=== PATIENT | male | born 1940 | race Caucasian/White ===

== ENCOUNTER → 2017-05-18 08:58 | Outpatient (CLI) | payer MEDICARE, OTHER, SELFPAY ==
[2017-05-18 10:47] LABS: Alanine Aminotransferase 40 U/L (12-78); Albumin Level 4.3 gm/dL (3.4-5.0); Albumin/Globulin Ratio 1.2 (1.1-1.8); Alkaline Phosphatase 90 U/L (46-116); Anion Gap 14.3 mEq/L (5-15); Aspartate Amino Transferase 16 U/L (15-37); Blood Urea Nitrogen 22 mg/dL (7-18); Calcium 9.2 mg/dL (8.5-10.1); Carbon Dioxide 27 mmol/L (21.0-32.0); Chloride 104 mmol/L (98-107); Cholesterol 155 mg/dL (140-200); Creatinine,Serum 1.25 mg/dL (0.70-1.30); Estimated Glomerular Filt Rate 56 ml/min (>60); GFR (African American) 68 ML/MIN (>60); Globulin 3.7 gm/dl (1.3-3.2); Glucose 106 mg/dL (74-106); HDL Cholesterol 51 mg/dL (27-67); LDL Cholesterol 73 mg/dL (0-130); Potassium 4.3 mmoL/L (3.5-5.1); Sodium 141 mmol/L (136-145); Triglycerides 155 mg/dL (30-200); VLDL Cholesterol 31 mg/dL (0-40)
== END ==
PROVIDERS: PCP Internal Medicine; Visit Provider Internal Medicine
DX: I10 Essential (primary) hypertension (principal); E78.5 Hyperlipidemia, unspecified; R73.02 Impaired glucose tolerance (oral); R39.12 Poor urinary stream
CPT/HCPCS: 36415; 80053; 80061; 84153

== ENCOUNTER → 2017-12-27 09:08 | Outpatient (CLI) | payer MEDICARE, OTHER, SELFPAY ==
[2017-12-27 09:33] LABS: Basophils % 0.4 % (0.1-2.0); Eosinophils # 0.1 K/mm3 (0.0-0.4); Eosinophils % 1.6 % (0.1-12.0); Hemoglobin 16.3 g/dL (14.1-18.0); Lymphocytes % 34.2 K/mm3 (10-50); Mean Corpuscular HGB Conc 32.6 g/dL (31.8-35.4); Mean Corpuscular Hemoglobin 28.7 pg (27.0-31.2); Mean Corpuscular Volume 88.1 fl (80-94); Mean Platelet Volume 7.2 fl (7.4-10.4); Monocytes # 0.6 K/mm3 (0.1-1.0); Monocytes % 7.1 % (1.7-9.3); Neutrophils # 4.9 K/mm3 (1.8-7.8); Neutrophils % 56.7 % (37.0-80.0); Platelet Count 243 K/mm3 (142-424); Red Blood Count 5.68 M/mm3 (4.60-6.20); Red Cell Distribution Width 13.8 % (11.5-17.5); White Blood Count 8.6 K/mm3 (4.8-10.8)
[2017-12-27 10:19] LABS: Alanine Aminotransferase 38 U/L (12-78); Albumin Level 4.1 gm/dL (3.4-5.0); Albumin/Globulin Ratio 1.1 (1.1-1.8); Alkaline Phosphatase 101 U/L (46-116); Aspartate Amino Transferase 18 U/L (15-37); Bilirubin,Total 1.1 mg/dL (0.2-1.0); Blood Urea Nitrogen 23 mg/dL (7-18); Calcium 9.3 mg/dL (8.5-10.1); Carbon Dioxide 26 mmol/L (21.0-32.0); Chloride 104 mmol/L (98-107); Chol/HDL Ratio 2.8 (1-3.5); Cholesterol 149 mg/dL (140-200); Creatinine,Serum 1.19 mg/dL (0.70-1.30); Estimated Glomerular Filt Rate 59 ml/min (>60); GFR (African American) 72 ML/MIN (>60); Globulin 3.6 gm/dl (1.3-3.2); Glucose 101 mg/dL (74-106); HDL Cholesterol 53 mg/dL (27-67); LDL Cholesterol 70 mg/dL (0-130); Sodium 142 mmol/L (136-145); Total Protein,Serum 7.7 gm/dL (6.4-8.2); Triglycerides 132 mg/dL (30-200); VLDL Cholesterol 26 mg/dL (0-40)
== END ==
PROVIDERS: PCP Internal Medicine; Visit Provider Internal Medicine
DX: I10 Essential (primary) hypertension (principal); I25.10 Atherosclerotic heart disease of native coronary artery without angina pectoris; E78.5 Hyperlipidemia, unspecified; R73.01 Impaired fasting glucose; Z95.1 Presence of aortocoronary bypass graft
CPT/HCPCS: 36415; 80053; 80061; 85025

== ENCOUNTER → 2018-06-23 09:16 | Outpatient (CLI) | payer MEDICARE, OTHER, SELFPAY ==
[2018-06-23 14:18] LABS: Alanine Aminotransferase 33 U/L (12-78); Albumin Level 4.2 gm/dL (3.4-5.0); Albumin/Globulin Ratio 1.2 (1.1-1.8); Alkaline Phosphatase 100 U/L (46-116); Aspartate Amino Transferase 20 U/L (15-37); Bilirubin,Total 0.9 mg/dL (0.2-1.0); Blood Urea Nitrogen 23 mg/dL (7-18); Calcium 9.3 mg/dL (8.5-10.1); Carbon Dioxide 23 mmol/L (21.0-32.0); Chloride 105 mmol/L (98-107); Chol/HDL Ratio 3.2 (1-3.5); Cholesterol 150 mg/dL (140-200); Creatinine,Serum 1.15 mg/dL (0.70-1.30); Estimated Glomerular Filt Rate 62 ml/min (>60); GFR (African American) 75 ML/MIN (>60); Globulin 3.6 gm/dl (1.3-3.2); Glucose 102 mg/dL (74-106); HDL Cholesterol 47 mg/dL (27-67); LDL Cholesterol 70 mg/dL (0-130); Prostate Specific Ag Screen 3.1 ng/mL (0.0-4.0); Sodium 142 mmol/L (136-145); Total Protein,Serum 7.8 gm/dL (6.4-8.2); Triglycerides 163 mg/dL (30-200); VLDL Cholesterol 33 mg/dL (0-40)
== END ==
PROVIDERS: Visit Provider Internal Medicine
DX: I25.10 Atherosclerotic heart disease of native coronary artery without angina pectoris (principal); I10 Essential (primary) hypertension; R73.01 Impaired fasting glucose; E78.5 Hyperlipidemia, unspecified; R39.12 Poor urinary stream; Z12.5 Encounter for screening for malignant neoplasm of prostate
CPT/HCPCS: 36415; 80053; 80061; G0103

== ENCOUNTER → 2018-11-10 11:06 | Outpatient (CLI) | payer MEDICARE, OTHER, SELFPAY ==
--- NOTE | 2018-11-10 11:10 | CA_ITS ---
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: DAVIS Laterality: Bilateral Study Quality: Good Indications: Carotid stenosis Doppler Spectral Velocity Analysis ECA (R) 76.20/ cm/s ECA (L) 110.00/ cm/s dICA (R) 54.20/23.60 cm/s dICA (L) 76.20/29.10 cm/s Poly (R) 45.60/18.10 cm/s Poly (L) 66.80/23.60 cm/s pICA (R) 42.40/12.60 cm/s pICA (L) 39.30/13.40 cm/s dCCA (R) 59.70/13.40 cm/s dCCA (L) 53.40/18.90 cm/s pCCA (R) 70.70/14.10 cm/s pCCA (L) 68.40/16.50 cm/s Vert (R) 29.10/ cm/s Vert (L) 40.90/ cm/s ICA/CCA 0.91 ICA/CCA 1.43 Findings Duplex evaluation demonstrates stenosis of the right proximal internal carotid artery <20% with PSV <140 cm/sec, EDV <100 cm/sec, and IC/CC Ratio <4.0.Duplex evaluation demonstrates stenosis of the left proximal internal carotid artery <20% with PSV <140 cm/sec, EDV <100 cm/sec, and IC/CC Ratio <4.0.Antegrade flow seen bilateral vertebral arteries. Conclusion Duplex evaluation demonstrates stenosis of the right proximal internal carotid artery <20% with PSV <140 cm/sec, EDV <100 cm/sec, and IC/CC Ratio <4.0.Duplex evaluation demonstrates stenosis of the left proximal internal carotid artery <20% with PSV <140 cm/sec, EDV <100 cm/sec, and IC/CC Ratio <4.0. Electronically signed by : Kuldip Benavides MD 11/10/2018 19:32:11
== END ==
PROVIDERS: PCP Internal Medicine; Visit Provider Internal Medicine Cardiovascular Disease
DX: I65.23 Occlusion and stenosis of bilateral carotid arteries (principal)
CPT/HCPCS: 93880

== ENCOUNTER → 2018-11-29 10:16 | Outpatient (CLI) | payer MEDICARE, OTHER, SELFPAY ==
[2018-11-29 12:19] LABS: Alanine Aminotransferase 37 U/L (12-78); Albumin Level 4.1 gm/dL (3.4-5.0); Albumin/Globulin Ratio 1.1 (1.1-1.8); Alkaline Phosphatase 119 U/L (46-116); Anion Gap 16.1 mEq/L (5-15); Aspartate Amino Transferase 20 U/L (15-37); Bilirubin,Total 0.8 mg/dL (0.2-1.0); Blood Urea Nitrogen 19 mg/dL (7-18); Calcium 9.3 mg/dL (8.5-10.1); Carbon Dioxide 26 mmol/L (21.0-32.0); Chloride 105 mmol/L (98-107); Chol/HDL Ratio 2.8 (1-3.5); Cholesterol 143 mg/dL (140-200); Creatinine,Serum 1.23 mg/dL (0.70-1.30); Estimated Glomerular Filt Rate 57 ml/min (>60); GFR (African American) 69 ML/MIN (>60); Globulin 3.6 gm/dl (1.3-3.2); Glucose 106 mg/dL (74-106); HDL Cholesterol 52 mg/dL (27-67); LDL Cholesterol 63 mg/dL (0-130); Potassium 4.1 mmoL/L (3.5-5.1); Sodium 143 mmol/L (136-145); Total Protein,Serum 7.7 gm/dL (6.4-8.2); Triglycerides 139 mg/dL (30-200); VLDL Cholesterol 28 mg/dL (0-40)
== END ==
PROVIDERS: Visit Provider Internal Medicine
DX: I25.10 Atherosclerotic heart disease of native coronary artery without angina pectoris (principal); I10 Essential (primary) hypertension; R73.01 Impaired fasting glucose; E78.5 Hyperlipidemia, unspecified; Z95.1 Presence of aortocoronary bypass graft
CPT/HCPCS: 36415; 80053; 80061

== ENCOUNTER → 2019-08-24 10:17 | Outpatient (CLI) | payer MEDICARE, OTHER, SELFPAY ==
[2019-08-24 10:52] LABS: Basophils # 0.1 K/mm3 (0-0.2); Basophils % 0.5 % (0.1-2.0); Eosinophils # 0.2 K/mm3 (0.0-0.4); Eosinophils % 2.2 % (0.1-12.0); Hematocrit 48.9 % (42.0-52.0); Hemoglobin 16.6 g/dL (14.1-18.0); Lymphocytes # 2.8 K/mm3 (0.7-4.5); Lymphocytes % 29.1 % (10-50); Mean Corpuscular Hemoglobin 29.8 pg (27.0-31.2); Mean Corpuscular Volume 87.7 fl (80-94); Mean Platelet Volume 7.3 fl (7.4-10.4); Monocytes # 0.6 K/mm3 (0.1-1.0); Monocytes % 6.1 % (1.7-9.3); Neutrophils # 5.9 K/mm3 (1.8-7.8); Platelet Count 232 K/mm3 (142-424); Red Blood Count 5.58 M/mm3 (4.60-6.20); Red Cell Distribution Width 13.9 % (11.5-17.5); White Blood Count 9.5 K/mm3 (4.8-10.8)
[2019-08-24 11:31] LABS: Chloride 105 mmol/L (98-107); Potassium 4.3 mmoL/L (3.5-5.1); Sodium 141 mmol/L (136-145)
[2019-08-24 11:34] LABS: Alanine Aminotransferase 24 U/L (12-78); Albumin Level 4.6 g/dl (3.5-5.0); Albumin/Globulin Ratio 1.5 (1.1-1.8); Alkaline Phosphatase 124 U/L (38-126); Anion Gap 14.3 mEq/L (5-15); Aspartate Amino Transferase 28 U/L (17-59); Blood Urea Nitrogen 19 mg/dl (9-20); Carbon Dioxide 26 mmol/L (22.0-30.0); Chol/HDL Ratio 2.7 (1-3.5); Cholesterol 142 mg/dl (140-200); Estimated Glomerular Filt Rate 65 ml/min (>60); GFR (African American) 78 ML/MIN (>60); Globulin 3.1 g/dL (1.3-3.2); Glucose 103 mg/dl (74-100); HDL Cholesterol 52 mg/dl (40-60); Total Protein,Serum 7.7 g/dl (6.3-8.2); Triglycerides 146 mg/dl (30-150); VLDL Cholesterol 29 mg/dL (0-40)
[2019-08-24 11:46] LABS: Direct LDL Cholesterol 76.67 mg/dL (100-129)
[2019-08-24 13:26] LABS: Prostate Specific Ag, Diagnost 2.67 ng/ml (0.0-4.0)
[2019-08-25 07:27] LABS: Vitamin D 25 Hydroxy 42.6 ng/mL (30.0-100.0)
== END ==
PROVIDERS: Visit Provider Internal Medicine
DX: I25.10 Atherosclerotic heart disease of native coronary artery without angina pectoris (principal); I10 Essential (primary) hypertension; E78.5 Hyperlipidemia, unspecified; N40.1 Benign prostatic hyperplasia with lower urinary tract symptoms
CPT/HCPCS: 36415; 80053; 80061; 82652; 84153; 85025

== ENCOUNTER → 2020-02-06 10:07 | Outpatient (CLI) | payer MEDICARE, OTHER, SELFPAY ==
[2020-02-06 10:32] LABS: Basophils % 0.5 % (0.1-2.0); Eosinophils # 0.1 K/mm3 (0.0-0.4); Eosinophils % 1.1 % (0.1-12.0); Hematocrit 54.3 % (42.0-52.0); Hemoglobin 17.9 g/dL (14.1-18.0); Lymphocytes # 2.7 K/mm3 (0.7-4.5); Lymphocytes % 29.4 % (10-50); Mean Corpuscular Hemoglobin 29.9 pg (27.0-31.2); Mean Corpuscular Volume 90.7 fl (80-94); Mean Platelet Volume 7.3 fl (7.4-10.4); Monocytes # 0.6 K/mm3 (0.1-1.0); Monocytes % 6.9 % (1.7-9.3); Neutrophils # 5.7 K/mm3 (1.8-7.8); Platelet Count 246 K/mm3 (142-424); Red Blood Count 5.98 M/mm3 (4.60-6.20); Red Cell Distribution Width 14.2 % (11.5-17.5); White Blood Count 9.2 K/mm3 (4.8-10.8)
[2020-02-06 10:57] LABS: Alanine Aminotransferase 26 U/L (12-78); Albumin Level 4.8 g/dl (3.5-5.0); Albumin/Globulin Ratio 1.5 (1.1-1.8); Alkaline Phosphatase 114 U/L (38-126); Anion Gap 14.3 mEq/L (5-15); Aspartate Amino Transferase 26 U/L (17-59); Blood Urea Nitrogen 24 mg/dl (9-20); Calcium 10.1 mg/dl (8.4-10.2); Carbon Dioxide 26 mmol/L (22.0-30.0); Chloride 104 mmol/L (98-107); Chol/HDL Ratio 2.8 (1-3.5); Cholesterol 162 mg/dl (140-200); Estimated Glomerular Filt Rate 59 ml/min (>60); GFR (African American) 71 ML/MIN (>60); Globulin 3.1 g/dL (1.3-3.2); Glucose 112 mg/dl (74-100); HDL Cholesterol 58 mg/dl (40-60); Potassium 4.3 mmoL/L (3.5-5.1); Sodium 140 mmol/L (136-145); Total Protein,Serum 7.9 g/dl (6.3-8.2); Triglycerides 167 mg/dl (30-150); VLDL Cholesterol 33 mg/dL (0-40)
[2020-02-06 11:07] LABS: Direct LDL Cholesterol 73.54 mg/dL (100-129)
[2020-02-06 11:12] LABS: 25-OH Vitamin D, Total 48.5 ng/mL (30-100)
[2020-02-06 11:27] LABS: Prostate Specific Ag, Diagnost 2.76 ng/ml (0.0-4.0)
== END ==
PROVIDERS: Visit Provider Internal Medicine
DX: I25.10 Atherosclerotic heart disease of native coronary artery without angina pectoris (principal); I10 Essential (primary) hypertension; E78.5 Hyperlipidemia, unspecified
CPT/HCPCS: 36415; 80053; 80061; 82306; 84153; 85025

== ENCOUNTER → 2020-08-09 08:21 | Outpatient (CLI) | payer MEDICARE, SELFPAY ==
[2020-08-09 08:53] LABS: Basophils # 0.1 K/mm3 (0-0.2); Basophils % 0.5 % (0.1-2.0); Eosinophils # 0.1 K/mm3 (0.0-0.4); Eosinophils % 1.6 % (0.1-12.0); Hematocrit 48.5 % (42.0-52.0); Hemoglobin 16.4 g/dL (14.1-18.0); Lymphocytes % 34.1 % (10-50); Mean Corpuscular HGB Conc 33.9 g/dL (31.8-35.4); Mean Corpuscular Hemoglobin 29.5 pg (27.0-31.2); Mean Platelet Volume 7.1 fl (7.4-10.4); Monocytes # 0.6 K/mm3 (0.1-1.0); Monocytes % 7.1 % (1.7-9.3); Neutrophils % 56.6 % (37.0-80.0); Platelet Count 235 K/mm3 (142-424); Red Blood Count 5.57 M/mm3 (4.60-6.20); Red Cell Distribution Width 14.1 % (11.5-17.5); White Blood Count 8.9 K/mm3 (4.8-10.8)
[2020-08-09 09:31] LABS: Alanine Aminotransferase 35 U/L (12-78); Albumin Level 4.8 g/dl (3.5-5.0); Albumin/Globulin Ratio 1.7 (1.1-1.8); Alkaline Phosphatase 106 U/L (38-126); Anion Gap 12.2 mEq/L (5-15); Aspartate Amino Transferase 32 U/L (17-59); Bilirubin,Total 0.8 mg/dl (0.2-1.3); Blood Urea Nitrogen 19 mg/dl (9-20); Calcium 9.9 mg/dl (8.4-10.2); Carbon Dioxide 26 mmol/L (22.0-30.0); Chloride 107 mmol/L (98-107); Chol/HDL Ratio 3.1 (1-3.5); Cholesterol 160 mg/dl (140-200); Estimated Glomerular Filt Rate 58 ml/min (>60); GFR (African American) 71 ML/MIN (>60); Globulin 2.9 g/dL (1.3-3.2); Glucose 109 mg/dl (74-100); HDL Cholesterol 52 mg/dl (40-60); Potassium 4.2 mmoL/L (3.5-5.1); Sodium 141 mmol/L (136-145); Total Protein,Serum 7.7 g/dl (6.3-8.2); Triglycerides 154 mg/dl (30-150); VLDL Cholesterol 31 mg/dL (0-40)
[2020-08-09 10:01] LABS: Prostate Specific Ag Screen 2.4 ng/ml (0.0-4.0)
== END ==
PROVIDERS: Visit Provider Internal Medicine
DX: I25.10 Atherosclerotic heart disease of native coronary artery without angina pectoris (principal); I10 Essential (primary) hypertension; E78.5 Hyperlipidemia, unspecified; Z12.5 Encounter for screening for malignant neoplasm of prostate
CPT/HCPCS: 36415; 80053; 80061; 85025; G0103

== ENCOUNTER → 2021-02-07 09:21 | Outpatient (CLI) | payer MEDICARE, SELFPAY | PROVIDERS: Visit Provider Internal Medicine | DX: I10 Essential (primary) hypertension (principal) ==

== ENCOUNTER → 2021-02-10 10:14 | Outpatient (CLI) | payer MEDICARE, SELFPAY ==
[2021-02-10 11:37] LABS: Alanine Aminotransferase 31 U/L (12-78); Albumin Level 4.7 g/dl (3.5-5.0); Albumin/Globulin Ratio 1.6 (1.1-1.8); Alkaline Phosphatase 116 U/L (38-126); Anion Gap 15.6 mEq/L (5-15); Aspartate Amino Transferase 29 U/L (17-59); Blood Urea Nitrogen 15 mg/dl (9-20); Calcium 9.8 mg/dl (8.4-10.2); Carbon Dioxide 27 mmol/L (22.0-30.0); Chloride 104 mmol/L (98-107); Chol/HDL Ratio 2.7 (1-3.5); Cholesterol 155 mg/dl (140-200); Estimated Glomerular Filt Rate 65 ml/min (>60); GFR (African American) 78 ML/MIN (>60); Glucose 105 mg/dl (74-100); HDL Cholesterol 58 mg/dl (40-60); Potassium 4.6 mmoL/L (3.5-5.1); Sodium 142 mmol/L (136-145); Total Protein,Serum 7.7 g/dl (6.3-8.2); Triglycerides 154 mg/dl (30-150); VLDL Cholesterol 31 mg/dL (0-40)
[2021-02-10 11:49] LABS: Direct LDL Cholesterol 63.99 mg/dL (100-129)
[2021-02-10 11:55] LABS: Free T4 (Free Thyroxine) 1.16 ng/dl (0.78-2.19)
[2021-02-10 12:09] LABS: Thyroid Stimulating Hormone 2.15 uIU/mL (0.465-4.68)
[2021-02-10 12:27] LABS: Vitamin B12 416 pg/mL (239-931)
== END ==
PROVIDERS: Visit Provider Internal Medicine
DX: I10 Essential (primary) hypertension (principal); I25.10 Atherosclerotic heart disease of native coronary artery without angina pectoris; R73.9 Hyperglycemia, unspecified; E78.5 Hyperlipidemia, unspecified; R53.83 Other fatigue
CPT/HCPCS: 36415; 80053; 80061; 82607; 84439; 84443

== ENCOUNTER → 2021-08-19 09:57 | Outpatient (CLI) | payer MEDICARE, SELFPAY ==
[2021-08-19 10:37] LABS: Basophils # 0.1 K/mm3 (0-0.2); Basophils % 1.2 % (0.1-2.0); Eosinophils # 0.1 K/mm3 (0.0-0.4); Eosinophils % 1.1 % (0.1-12.0); Hematocrit 50.8 % (42.0-52.0); Hemoglobin 16.8 g/dL (14.1-18.0); Lymphocytes # 2.8 K/mm3 (0.7-4.5); Lymphocytes % 32.2 % (10-50); Mean Corpuscular HGB Conc 33.1 g/dL (31.8-35.4); Mean Corpuscular Hemoglobin 29.8 pg (27.0-31.2); Mean Platelet Volume 7.7 fl (7.4-10.4); Monocytes # 0.6 K/mm3 (0.1-1.0); Monocytes % 6.9 % (1.7-9.3); Neutrophils % 58.6 % (37.0-80.0); Platelet Count 251 K/mm3 (142-424); Red Blood Count 5.64 M/mm3 (4.60-6.20); Red Cell Distribution Width 14.3 % (11.5-17.5); White Blood Count 8.6 K/mm3 (4.8-10.8)
[2021-08-19 10:50] LABS: Alanine Aminotransferase 30 U/L (12-78); Albumin Level 4.6 g/dl (3.5-5.0); Albumin/Globulin Ratio 1.6 (1.1-1.8); Alkaline Phosphatase 121 U/L (38-126); Anion Gap 12.6 mEq/L (5-15); Aspartate Amino Transferase 30 U/L (17-59); Blood Urea Nitrogen 19 mg/dl (9-20); Calcium 9.8 mg/dl (8.4-10.2); Carbon Dioxide 29 mmol/L (22.0-30.0); Chloride 103 mmol/L (98-107); Chol/HDL Ratio 3.1 (1-3.5); Cholesterol 154 mg/dl (140-200); Estimated Glomerular Filt Rate 64 ml/min (>60); GFR (African American) 78 ML/MIN (>60); Globulin 2.8 g/dL (1.3-3.2); Glucose 116 mg/dl (74-100); HDL Cholesterol 50 mg/dl (40-60); Potassium 4.6 mmoL/L (3.5-5.1); Sodium 140 mmol/L (136-145); Total Protein,Serum 7.4 g/dl (6.3-8.2); Triglycerides 138 mg/dl (30-150); VLDL Cholesterol 28 mg/dL (0-40)
[2021-08-19 11:01] LABS: Direct LDL Cholesterol 71.48 mg/dL (100-129)
[2021-08-19 11:19] LABS: Prostate Specific Ag Screen 5.2 ng/ml (0.0-4.0)
== END ==
PROVIDERS: Visit Provider Internal Medicine
DX: I25.10 Atherosclerotic heart disease of native coronary artery without angina pectoris (principal); I10 Essential (primary) hypertension; E78.5 Hyperlipidemia, unspecified; R73.01 Impaired fasting glucose; N40.1 Benign prostatic hyperplasia with lower urinary tract symptoms; Z12.5 Encounter for screening for malignant neoplasm of prostate; Z95.1 Presence of aortocoronary bypass graft
CPT/HCPCS: 36415; 80053; 80061; 85025; G0103

== ENCOUNTER → 2021-10-27 09:17 | Outpatient (CLI) | payer MEDICARE, SELFPAY ==
[2021-10-28 08:15] LABS: PSA, Free 0.68 ng/mL; Prostate Specific Ag 3.3 ng/mL (0.0-4.0)
== END ==
PROVIDERS: PCP Internal Medicine; Visit Provider Urology
DX: R97.20 Elevated prostate specific antigen [PSA] (principal)
CPT/HCPCS: 36415; 84153; 84154

== ENCOUNTER 2021-12-19 09:32 | Emergency (ER) | payer MEDICARE, SELFPAY ==
[2021-12-19 09:33] VITALS: BP 164/98; PULSE 84; RESP 16; TEMP 36.6; O2SAT 98; BMI 33.0
--- NOTE | 2021-12-19 09:39 | ECG_ITS ---
APPROVED REPORT Exam: Resting ECG HR:74 bpm ECG Measurements Heart Rate 74 AXES OR 152 P 51 QRSd 105 QRS 16 QT 315 T 47 QTc 342 Conclusion SINUS RHYTHM WITH SINUS ARRHYTHMIA INCOMPLETE RIGHT BUNDLE BRANCH BLOCK [90+ ms QRS DURATION, TERMINAL R IN V1/V2, 40+ ms S IN I/aVL/V4/V5/V6] NONSPECIFIC T-WAVE ABNORMALITY BORDERLINE ECG UNCONFIRMED REPORT Electronically signed by : Parrish Mcqueen MD 12/20/2021 06:57:03
--- NOTE | 2021-12-19 09:41 | PC.NURSE ---
Addendum entered by Priscila Meza 12/19/21 09:59: RN OBTAINED EKG Original Note: AIDA VELÁSQUEZ, Tech @ Tech obtained EKG
--- NOTE | 2021-12-19 09:46 | XR_ITS ---
FINAL REPORT CLINICAL HISTORY: cough FINDINGS: SINGLE-VIEW CHEST The heart size is normal. The patient is status post median sternotomy. There are mild chronic changes at the left base. The lungs are otherwise clear. There is no pneumothorax. IMPRESSION: No acute cardiopulmonary process. Reviewed, Interpreted and Dictated by Alfonso Werner MD Transcribed by Olive Bustillos Authenticated and [facility]
--- NOTE | 2021-12-19 09:46 | CT_ITS ---
FINAL REPORT TECHNIQUE: Axial CT images were performed through the head. Coronal reformatted images were submitted. This study was performed with techniques to keep radiation doses as low as reasonably achievable (ALARA). Individualized dose reduction techniques using automated exposure control or adjustment of mA and/or kV according to the patient's size were employed. CLINICAL HISTORY: near syncope FINDINGS: There is mild to moderate atrophy. The ventricles are normal in size. There is no evidence of hemorrhage. There is no mass or edema identified. There is no abnormal extra-axial fluid seen. There is mild mucoperiosteal thickening in the left cell of the frontal sinus. No air-fluid levels are identified. IMPRESSION: Atrophy without acute intracranial abnormality. Reviewed, Interpreted and Dictated by Alfonso Werner MD Transcribed by Olive Bustillos Authenticated and [facility]
[2021-12-19 10:07] LABS: Basophils # 0.1 K/mm3 (0-0.2); Basophils % 1.2 % (0.1-2.0); Eosinophils # 0.1 K/mm3 (0.0-0.4); Hematocrit 48.1 % (42.0-52.0); Hemoglobin 16.2 g/dL (14.1-18.0); Lymphocytes # 2.8 K/mm3 (0.7-4.5); Lymphocytes % 26.7 % (10-50); Mean Corpuscular HGB Conc 33.6 g/dL (31.8-35.4); Mean Corpuscular Hemoglobin 30.3 pg (27.0-31.2); Mean Platelet Volume 7.4 fl (7.4-10.4); Monocytes # 0.6 K/mm3 (0.1-1.0); Monocytes % 5.5 % (1.7-9.3); Neutrophils # 6.8 K/mm3 (1.8-7.8); Neutrophils % 65.6 % (37.0-80.0); Platelet Count 279 K/mm3 (142-424); Red Blood Count 5.35 M/mm3 (4.60-6.20); Red Cell Distribution Width 14.1 % (11.5-17.5); White Blood Count 10.4 K/mm3 (4.8-10.8)
[2021-12-19 10:22] LABS: Chloride 102 mmol/L (98-107); Sodium 142 mmol/L (136-145)
[2021-12-19 10:25] LABS: Alanine Aminotransferase 33 U/L (12-78); Albumin Level 4.6 g/dl (3.5-5.0); Albumin/Globulin Ratio 1.5 (1.1-1.8); Alkaline Phosphatase 122 U/L (38-126); Aspartate Amino Transferase 36 U/L (17-59); Bilirubin,Total 0.7 mg/dl (0.2-1.3); Blood Urea Nitrogen 20 mg/dl (9-20); Carbon Dioxide 28 mmol/L (22.0-30.0); Creatinine Clearance Estimated 55 mL/min (50-200); Estimated Glomerular Filt Rate 58 ml/min (>60); GFR (African American) 70 ML/MIN (>60); Globulin 3.1 g/dL (1.3-3.2); Total Protein,Serum 7.7 g/dl (6.3-8.2)
[2021-12-19 10:26] LABS: Calcium 9.3 mg/dl (8.4-10.2); Glucose 114 mg/dl (74-100)
[2021-12-19 10:31] VITALS: BP 141/65; PULSE 54; RESP 20; O2SAT 94
[2021-12-19 10:35] LABS: NT Pro Brain Natriuretic Pep. 135 pg/mL (0-450)
[2021-12-19 10:40] LABS: Troponin I < 0.01 ng/ml (0.00-0.034)
--- NOTE | 2021-12-19 10:47 | HMH.EDGENADL ---
Discharge Plan Disposition Patient Disposition: Home, Self-Care Condition: Good Chief Complaint: Weakness Prescriptions Prescriptions: No Action irbesartan 150 mg tablet 150 mg PO DAILY rosuvastatin 40 mg tablet 40 mg PO DAILY aspirin 81 mg tablet,chewable 81 mg PO DAILY coenzyme Q10 [CoQ-10] 100 mg capsule 100 mg PO DAILY mecobalamin (vitamin B12) 1,000 mcg tablet,disintegrating 1,000 mcg PO DAILY Rx Instructions: place tablet under tongue and allow to dissolve for at least30 secs before swallowing Referrals Follow up/Referrals: Catarino Ireland MD [Primary Care Provider] - See instructions Clinical Impressions Clinical Impression: Near syncope Instructions Patient Instructions: DI for Syncope in Adults (Fainting) Discharge ED Provider: [facility] HPI General Chief complaint: Weakness Stated complaint: Near moments of unconciousness since yesterday Time Seen by Provider: 12/19/21 09:47 Mode of Arrival: Ambulatory Source of Information: Patient Limitations: No Limitations Description of Symptoms (Recalled from ER Triage Doc. by RN): to ed per pvt car pt sent by pcp for eval due to episodes of near syncope x 4 yesterday pt states symptoms resolved after lying down. pt denies any nausea, vomiting,, chest pain, sob History of Present Illness HPI narrative: This is a 81-year-old male presented to the emergency department with some near syncopal episodes. Patient apparently has been having these issues for quite some time. However they worsened yesterday. Patient states that he had 4 episodes yesterday when he got very lightheaded. They appear to be when he was changing positions. Patient states that he had to sit down or he felt like he may pass out. The patient did not actually lose consciousness during the event. There is no vertiginous component. States that he feels completely fine at this time. He does not have any headache or change in vision. No focal weakness. No fevers or chills. No chest pain or shortness of breath. No abdominal pain or vomiting. No diarrhea. Related Data Home Medications Medication Instructions Recorded Confirmed aspirin 81 mg chewable tablet 81 mg PO DAILY 08/28/21 10/30/21 coenzyme Q10 100 mg capsule 100 mg PO DAILY 08/28/21 10/30/21 (CoQ-10) irbesartan 150 mg tablet 150 mg PO DAILY 08/28/21 10/30/21 mecobalamin (vitamin B12) 1,000 1,000 mcg PO DAILY 08/28/21 10/30/21 mcg disintegrating tablet,sublingual rosuvastatin 40 mg tablet 40 mg PO DAILY 08/28/21 10/30/21 Allergies Allergy/AdvReac Type Severity Reaction Status Date / Time INGREDIENT: NO KNOWN - NO Allergy Unknown Uncoded 10/30/21 10:53 KNOWN DRUG ALLERGY [facility] Social History Smoking Status: Never smoker alcohol intake: never substance use type: denies use current occupational status: retired Travel in the last 8 weeks: None household members: spouse housing: house ROS Obtained: Yes All systems reviewed & no additional complaints except as documented Constitutional Constitutional: Reports weakness Cardiovascular Cardiovascular: Denies chest pain and Denies dyspnea Respiratory Respiratory: Denies dyspnea Gastrointestinal Gastrointestingal: Denies vomiting Musculoskeletal Musculoskeletal: Denies arthralgias Integumentary/Breasts Skin/Breast: Denies rash Neurologic Neurologic: Reports weakness Comments: near syncope Physical Exam General General appearance: alert and in no apparent distress Eye Eye exam: Present normal appearance, PERRL and EOMI Neck Neck exam: Present normal inspection and full ROM Respiratory Respiratory exam: Present normal lung sounds bilaterally; Absent respiratory distress Cardiovascular Cardiovascular exam: Present regular rate and normal rhythm Abdominal Exam Abdominal exam: Present soft; Absent distention, tenderness,
[2021-12-19 11:00] VITALS: BP 144/77; PULSE 54; RESP 20; O2SAT 96
[2021-12-19 11:00] LABS: Coronavirus 19, PCR Not Detected (NotDetected); Influenza A, PCR Not Detected (NotDetected); Influenza B, PCR Not Detected (NotDetected)
--- NOTE | 2021-12-19 11:17 | PC.NURSE ---
pt and so updated on plan of care
[2021-12-19 11:45] VITALS: BP 124/74; PULSE 54; RESP 16; TEMP 36.6; O2SAT 98
== END 2021-12-19 11:47 | disposition home or self-care (01) ==
PROVIDERS: Emergency Provider Emergency Medicine; PCP Internal Medicine
DX: R55 Syncope and collapse (principal); Z79.82 Long term (current) use of aspirin; Z79.899 Other long term (current) drug therapy
CPT/HCPCS: 70450; 71045; 80053; 83880; 84443; 84484; 85025; 93005; 99284; C9803; U0003; U0005

== ENCOUNTER → 2021-12-25 11:11 | Outpatient (CLI) | payer MEDICARE, SELFPAY ==
--- NOTE | 2021-12-25 | CA_ITS ---
FINAL REPORT CLINICAL HISTORY: HTN, HLD,DM FINDINGS: An ultrasound of the carotid arteries was performed. Duplex Doppler evaluation with spectral analysis was performed. The peak systolic velocity of the right common carotid artery is 97 cm/s. The peak systolic velocity of the right internal carotid artery is 46 cm/s and end diastolic velocity 12 cm/s. A small amount of plaque is present. The right external carotid artery is patent. The right vertebral artery is patent with antegrade flow. ICA/CCA ratio: 1.01 The peak systolic velocity of the left common carotid artery is 68 cm/s. The peak systolic velocity of the left internal carotid artery is 71 cm/s and end diastolic velocity 26 cm/s. A small amount of plaque is present. The left external carotid artery is patent. The left vertebral artery is patent with antegrade flow. ICA/CCA ratio: 1.17 Bilateral patent vertebral arteries with antegrade flow. IMPRESSION: Less than 50% bilateral carotid stenosis. Reviewed, Interpreted and Dictated by Nicole House MD Transcribed by Hector Patton Authenticated and [facility]
== END ==
PROVIDERS: PCP Internal Medicine
DX: I65.23 Occlusion and stenosis of bilateral carotid arteries (principal)
CPT/HCPCS: 93880

== ENCOUNTER → 2021-12-30 14:33 | Outpatient (CLI) | payer MEDICARE, SELFPAY | PROVIDERS: PCP Internal Medicine; Visit Provider Internal Medicine | DX: R55 Syncope and collapse (principal); R00.1 Bradycardia, unspecified | CPT/HCPCS: 93225; 93226 ==

== ENCOUNTER → 2022-02-24 10:09 | Outpatient (CLI) | payer MEDICARE, SELFPAY ==
[2022-02-24 11:12] LABS: Alanine Aminotransferase 24 U/L (12-78); Albumin Level 5.1 g/dl (3.5-5.0); Albumin/Globulin Ratio 1.8 (1.1-1.8); Alkaline Phosphatase 145 U/L (38-126); Aspartate Amino Transferase 27 U/L (17-59); Bilirubin,Total 0.9 mg/dl (0.2-1.3); Blood Urea Nitrogen 23 mg/dl (9-20); Calcium 10.1 mg/dl (8.4-10.2); Carbon Dioxide 29 mmol/L (22.0-30.0); Chloride 97 mmol/L (98-107); Chol/HDL Ratio 2.9 (1-3.5); Cholesterol 150 mg/dl (140-200); Estimated Glomerular Filt Rate 49 ml/min (>60); GFR (African American) 59 ML/MIN (>60); Globulin 2.9 g/dL (1.3-3.2); Glucose 109 mg/dl (74-100); HDL Cholesterol 52 mg/dl (40-60); Sodium 143 mmol/L (136-145); Triglycerides 144 mg/dl (30-150); VLDL Cholesterol 29 mg/dL (0-40)
[2022-02-24 11:22] LABS: Direct LDL Cholesterol 64.22 mg/dL (100-129)
== END ==
PROVIDERS: PCP Internal Medicine; Visit Provider Pediatrics
DX: I25.10 Atherosclerotic heart disease of native coronary artery without angina pectoris (principal); I10 Essential (primary) hypertension; E78.5 Hyperlipidemia, unspecified
CPT/HCPCS: 36415; 80053; 80061

== ENCOUNTER → 2022-03-20 14:31 | Outpatient (CLI) | payer MEDICARE, SELFPAY ==
--- NOTE | 2022-03-20 14:35 | US_ITS ---
FINAL REPORT TECHNIQUE: Ultrasound images of the kidneys and bladder were obtained. CLINICAL HISTORY: ELEVATED CREAT FINDINGS: The right kidney measures 10.3 cm in length. It is normal in echogenicity. There is no hydronephrosis. The left kidney measures 10.8 cm in length. It is normal in echogenicity. There is mild left hydronephrosis. The spleen is within normal limits measuring 9.9 cm. IMPRESSION: Mild left hydronephrosis. Reviewed, Interpreted and Dictated by Michael Manuel III, MD Transcribed by Olive Bustillos Authenticated and [facility]
--- NOTE | 2022-03-20 14:35 | US_ITS ---
FINAL REPORT CLINICAL HISTORY: ELEVATED CREAT FINDINGS: Limited sonographic images of the bladder were obtained. The bladder measures 6.8 x 4.3 x 7.6 cm. The bladder volume is 116 mL. Postvoid bladder volume is 78 mL. IMPRESSION: Moderate postvoid residual. Reviewed, Interpreted and Dictated by Michael Manuel III, MD Transcribed by Olive Bustillos Authenticated and [facility]
== END ==
PROVIDERS: PCP Internal Medicine; Visit Provider Internal Medicine
DX: R79.89 Other specified abnormal findings of blood chemistry (principal)
CPT/HCPCS: 76770; 76857

== ENCOUNTER → 2022-04-13 14:25 | Outpatient (CLI) | payer MEDICARE, SELFPAY ==
[2022-04-13 16:34] LABS: Blood Urea Nitrogen 19 mg/dl (9-20); Estimated Glomerular Filt Rate 34 ml/min (>60); GFR (African American) 41 ML/MIN (>60)
== END ==
PROVIDERS: PCP Internal Medicine; Visit Provider Urology
DX: N13.30 Unspecified hydronephrosis (principal)
CPT/HCPCS: 36415; 82565; 84520

== ENCOUNTER → 2022-04-14 09:27 | Outpatient (CLI) | payer MEDICARE, SELFPAY ==
--- NOTE | 2022-04-14 09:30 | CT_ITS ---
FINAL REPORT TECHNIQUE: Pre-and postcontrast axial imaging of the abdomen and pelvis was obtained.This study was performed with techniques to keep radiation doses as low as reasonably achievable, (ALARA). Individualized dose reduction technique using automated exposure control or adjustment of mA and/or kV according to the patient's size were employed. CLINICAL HISTORY: HYDRONEPHROSIS FINDINGS: There are several bilateral lower lobe nodules with the largest in the left lower lobe measuring 6 mm, well seen on image 7 of series 5. The liver is fatty infiltration without a focal lesion. The gallbladder is present. The spleen, adrenal glands and pancreas are without acute abnormality. There are a few calcifications in the pancreatic head suggests of of chronic pancreatitis. There is mild bilateral hydronephrosis to the urinary bladder. No renal mass is identified. On precontrast imaging, no renal or ureteral stones are identified. Abdominal GI tract is unremarkable. There is no lymphadenopathy or ascites. The pelvic portions of the GI tract, including the appendix, are within normal limits. The prostate is enlarged. The urinary bladder is mildly distended. There is diverticulosis without diverticulitis. There is no lymphadenopathy or ascites. No acute osseous abnormalities identified. IMPRESSION: 1. Mild bilateral hydronephrosis and higher true ureter likely related to a distended urinary bladder. No obstructing stones. 2. Enlarged prostate. 3. Lower lung noncalcified nodules, could be postinfectious, neoplasm not excluded. Recommend follow-up per Fleischner criteria after risk stratification. Reviewed, Interpreted and Dictated by Pat Gilbert MD Transcribed by Linda Mendez Authenticated and [facility]
== END ==
PROVIDERS: PCP Internal Medicine; Visit Provider Urology
DX: N13.30 Unspecified hydronephrosis (principal)
CPT/HCPCS: 74178; Q9967

== ENCOUNTER → 2022-04-21 10:03 | Outpatient (CLI) | payer MEDICARE, SELFPAY ==
--- NOTE | 2022-04-21 10:06 | CT_ITS ---
FINAL REPORT TECHNIQUE: Axial CT images were performed through the chest without contrast. Coronal reformatted images were submitted. This study was performed with techniques to keep radiation doses as low as reasonably achievable (ALARA). Individualized dose reduction techniques using automated exposure control or adjustment of mA and/or kV according to the patient's size were employed. CLINICAL HISTORY: LUNG NODULES COMPARISON: CT abdomen and pelvis dated 04/14/2022 FINDINGS: There is no axillary adenopathy. There is no hilar or mediastinal adenopathy. The heart size is normal. There is no pericardial or pleural effusion. Limited images of the upper abdomen are unremarkable. There are scattered pulmonary nodules in a lobed distribution and, left greater than right. At least 10 nodules are identified including the two largest: A 7 mm in the left lower lobe on image 43 and 8 mm and a left upper lobe image 22. There is evidence of old granulomatous disease. IMPRESSION: Scattered subcentimeter noncalcified pulmonary nodules which are nonspecific for granulomatous or metastatic disease. These are too small for biopsy or chest CT characterization. Recommend continued chest CT follow-up in 3-6 months. Reviewed, Interpreted and Dictated by Nicole House MD Transcribed by Linda Mendez Authenticated and . [facility]
== END ==
PROVIDERS: PCP Internal Medicine; Visit Provider Internal Medicine
DX: R91.8 Other nonspecific abnormal finding of lung field (principal)
CPT/HCPCS: 71250

== ENCOUNTER → 2022-08-21 09:22 | Outpatient (CLI) | payer MEDICARE, SELFPAY ==
[2022-08-21 10:43] LABS: Basophils % 0.4 % (0.1-2.0); Eosinophils # 0.2 K/mm3 (0.0-0.4); Eosinophils % 1.6 % (0.1-12.0); Hematocrit 51.1 % (42.0-52.0); Hemoglobin 16.8 g/dL (14.1-18.0); Lymphocytes # 2.8 K/mm3 (0.7-4.5); Lymphocytes % 27.9 % (10-50); Mean Corpuscular HGB Conc 32.9 g/dL (31.8-35.4); Mean Platelet Volume 8.6 fl (7.4-10.4); Monocytes # 0.8 K/mm3 (0.1-1.0); Monocytes % 8.4 % (1.7-9.3); Neutrophils # 6.1 K/mm3 (1.8-7.8); Neutrophils % 61.6 % (37.0-80.0); Platelet Count 232 K/mm3 (142-424); Red Blood Count 5.61 M/mm3 (4.60-6.20); Red Cell Distribution Width 13.8 % (11.5-17.5); White Blood Count 9.9 K/mm3 (4.8-10.8)
[2022-08-21 11:23] LABS: Alanine Aminotransferase 25 U/L (12-78); Albumin Level 4.6 g/dl (3.5-5.0); Albumin/Globulin Ratio 1.5 (1.1-1.8); Alkaline Phosphatase 122 U/L (38-126); Anion Gap 18.4 mEq/L (5-15); Aspartate Amino Transferase 36 U/L (17-59); Bilirubin,Total 1.3 mg/dl (0.2-1.3); Blood Urea Nitrogen 19 mg/dl (9-20); Calcium 9.4 mg/dl (8.4-10.2); Carbon Dioxide 19 mmol/L (22.0-30.0); Chloride 106 mmol/L (98-107); Chol/HDL Ratio 2.3 (1-3.5); Cholesterol 131 mg/dl (140-200); Estimated Glomerular Filt Rate 64 ml/min (>60); GFR (African American) 78 ML/MIN (>60); Globulin 3.1 g/dL (1.3-3.2); Glucose 95 mg/dl (74-100); HDL Cholesterol 58 mg/dl (40-60); Potassium 4.4 mmoL/L (3.5-5.1); Sodium 139 mmol/L (136-145); Total Protein,Serum 7.7 g/dl (6.3-8.2); Triglycerides 113 mg/dl (30-150); VLDL Cholesterol 23 mg/dL (0-40)
[2022-08-21 11:54] LABS: Prostate Specific Ag Screen 2.7 ng/ml (0.0-4.0)
== END ==
PROVIDERS: PCP Internal Medicine; Visit Provider Internal Medicine
DX: I25.10 Atherosclerotic heart disease of native coronary artery without angina pectoris (principal); I10 Essential (primary) hypertension; E78.5 Hyperlipidemia, unspecified; R73.01 Impaired fasting glucose; R79.89 Other specified abnormal findings of blood chemistry; Z95.1 Presence of aortocoronary bypass graft; Z12.5 Encounter for screening for malignant neoplasm of prostate
CPT/HCPCS: 36415; 80053; 80061; 85025; G0103

== ENCOUNTER → 2023-03-01 09:47 | Outpatient (CLI) | payer MEDICARE, SELFPAY ==
[2023-03-01 10:54] LABS: Chloride 106 mmol/L (98-107); Sodium 139 mmol/L (136-145)
[2023-03-01 10:55] LABS: Potassium 4.2 mmoL/L (3.5-5.1)
[2023-03-01 10:57] LABS: Alanine Aminotransferase 31 U/L (12-78); Albumin Level 4.7 g/dl (3.5-5.0); Albumin/Globulin Ratio 1.6 (1.1-1.8); Alkaline Phosphatase 121 U/L (38-126); Anion Gap 13.2 mEq/L (5-15); Aspartate Amino Transferase 31 U/L (17-59); Blood Urea Nitrogen 23 mg/dl (9-20); Carbon Dioxide 24 mmol/L (22.0-30.0); Cholesterol 128 mg/dl (140-200); Estimated Glomerular Filt Rate 53 ml/min (>60); GFR (African American) 64 ML/MIN (>60); Total Protein,Serum 7.7 g/dl (6.3-8.2); Triglycerides 133 mg/dl (30-150); VLDL Cholesterol 27 mg/dL (0-40)
[2023-03-01 10:58] LABS: Calcium 9.3 mg/dl (8.4-10.2); Chol/HDL Ratio 2.7 (1-3.5); Glucose 108 mg/dl (74-100); HDL Cholesterol 48 mg/dl (40-60)
[2023-03-01 11:09] LABS: Direct LDL Cholesterol 57.14 mg/dL (100-129)
== END ==
PROVIDERS: PCP Internal Medicine; Visit Provider Internal Medicine
DX: I25.10 Atherosclerotic heart disease of native coronary artery without angina pectoris; I10 Essential (primary) hypertension; E78.5 Hyperlipidemia, unspecified
CPT/HCPCS: 36415; 80053; 80061

== ENCOUNTER 2023-09-07 09:00 | Outpatient (CLI) | payer MEDICARE, SELFPAY ==
--- OUTSIDE RECORDS SUMMARY | 2023-09-07 09:02 | XMS_ITS ---
Author Name Unknown Organization Unknown ALLERGIES AND ADVERSE REACTIONS No information ASSESSMENT No information CHIEF COMPLAINT No information MEDICATIONS No information OBJECTIVE DATA No information PHYSICAL EXAMINATION No information TREATMENT PLAN Planned Care Start Date Provider Encounter for Check-up [id number] [facility] PROBLEMS No information RESULTS No information REVIEW OF SYSTEMS No information SUBJECTIVE DATA No information VITAL SIGNS No information
[2023-09-07 09:29] LABS: Basophils # 0.1 K/mm3 (0-0.2); Eosinophils # 0.1 K/mm3 (0.0-0.4); Eosinophils % 1.7 % (0.1-12.0); Hematocrit 50.5 % (42.0-52.0); Hemoglobin 16.7 g/dL (14.1-18.0); Lymphocytes # 2.8 K/mm3 (0.7-4.5); Lymphocytes % 33.5 % (10-50); Mean Corpuscular Volume 90.9 fl (80-94); Mean Platelet Volume 7.4 fl (7.4-10.4); Monocytes # 0.5 K/mm3 (0.1-1.0); Monocytes % 5.8 % (1.7-9.3); Neutrophils # 4.9 K/mm3 (1.8-7.8); Platelet Count 232 K/mm3 (142-424); Red Blood Count 5.56 M/mm3 (4.60-6.20); Red Cell Distribution Width 14.6 % (11.5-17.5); White Blood Count 8.4 K/mm3 (4.8-10.8)
[2023-09-07 09:45] LABS: Chloride 105 mmol/L (98-107); Potassium 4.2 mmoL/L (3.5-5.1); Sodium 140 mmol/L (136-145)
[2023-09-07 09:47] LABS: Blood Urea Nitrogen 21 mg/dl (9-20); Estimated Glomerular Filt Rate 58 ml/min (>60); GFR (African American) 70 ML/MIN (>60)
[2023-09-07 09:48] LABS: Alanine Aminotransferase 29 U/L (12-78); Albumin Level 4.7 g/dl (3.5-5.0); Albumin/Globulin Ratio 1.4 (1.1-1.8); Alkaline Phosphatase 116 U/L (38-126); Anion Gap 16.2 mEq/L (5-15); Aspartate Amino Transferase 33 U/L (17-59); Bilirubin,Total 1.2 mg/dl (0.2-1.3); Carbon Dioxide 23 mmol/L (22.0-30.0); Cholesterol 155 mg/dl (140-200); Globulin 3.3 g/dL (1.3-3.2); Triglycerides 139 mg/dl (30-150); VLDL Cholesterol 28 mg/dL (0-40)
[2023-09-07 09:49] LABS: Chol/HDL Ratio 3.1 (1-3.5); Glucose 106 mg/dl (74-100); HDL Cholesterol 50 mg/dl (40-60)
[2023-09-07 10:00] LABS: Direct LDL Cholesterol 68.53 mg/dL (100-129)
[2023-09-07 13:53] LABS: Prostate Specific Ag Screen 2.8 ng/ml (0.0-4.0)
== END 2023-09-07 23:59 | disposition home or self-care (01) ==
PROVIDERS: PCP Internal Medicine; Visit Provider Internal Medicine
DX: I12.9 Hypertensive chronic kidney disease with stage 1 through stage 4 chronic kidney disease, or unspecified chronic kidney disease (principal); N18.9 Chronic kidney disease, unspecified; E78.5 Hyperlipidemia, unspecified; Z12.5 Encounter for screening for malignant neoplasm of prostate
CPT/HCPCS: 36415; 80053; 80061; 85025; G0103

== ENCOUNTER 2024-03-06 09:42 | Outpatient (CLI) | payer MEDICARE, SELFPAY ==
[2024-03-06 11:03] LABS: Albumin Level 4.3 g/dl (3.5-5.0); Chloride 109 mmol/L (98-107)
[2024-03-06 11:05] LABS: Alanine Aminotransferase 22 U/L (12-78); Aspartate Amino Transferase 26 U/L (17-59); Blood Urea Nitrogen 22 mg/dl (9-20); Estimated Glomerular Filt Rate 45 ml/min (>60); GFR (African American) 54 ML/MIN (>60)
[2024-03-06 11:06] LABS: Albumin/Globulin Ratio 1.7 (1.1-1.8); Bilirubin,Total 1.1 mg/dl (0.2-1.3); Calcium 9.4 mg/dl (8.4-10.2); Chol/HDL Ratio 2.8 (1-3.5); Globulin 2.5 g/dL (1.3-3.2); Glucose 98 mg/dl (74-100); Total Protein,Serum 6.8 g/dl (6.3-8.2)
[2024-03-06 11:24] LABS: Potassium 4.1 mmoL/L (3.5-5.1); Sodium 140 mmol/L (136-145)
[2024-03-06 11:27] LABS: Alkaline Phosphatase 106 U/L (38-126); Anion Gap 11.1 mEq/L (5-15); Carbon Dioxide 24 mmol/L (22.0-30.0); Cholesterol 124 mg/dl (140-200); HDL Cholesterol 44 mg/dl (40-60); Triglycerides 131 mg/dl (30-150); VLDL Cholesterol 26 mg/dL (0-40)
[2024-03-06 11:39] LABS: Direct LDL Cholesterol 44 mg/dL (100-129)
[2024-03-19 19:07] LABS: 1,25 Dihydroxy Vitamin D 55 pg/mL (.); 1,25-Dihydroxy, Vitamin D-2 <10 pg/mL (.); 1,25-Dihydroxy, Vitamin D-3 55 pg/mL (.)
== END 2024-03-06 23:59 | disposition home or self-care (01) ==
LOC: LAB 09:44
PROVIDERS: PCP Internal Medicine; Visit Provider Internal Medicine
DX: I10 Essential (primary) hypertension (principal); E78.5 Hyperlipidemia, unspecified; I25.10 Atherosclerotic heart disease of native coronary artery without angina pectoris; E55.9 Vitamin D deficiency, unspecified
CPT/HCPCS: 36415; 80053; 80061; 82652

== ENCOUNTER 2024-06-09 09:34 | Outpatient (CLI) | payer MEDICARE, SELFPAY ==
[2024-06-09 10:45] LABS: Anion Gap 13.1 mEq/L (5-15); Blood Urea Nitrogen 26 mg/dl (9-20); Calcium 9.1 mg/dl (8.4-10.2); Carbon Dioxide 21 mmol/L (22.0-30.0); Chloride 107 mmol/L (98-107); Estimated Glomerular Filt Rate 49 ml/min (>60); GFR (African American) 59 ML/MIN (>60); Glucose 102 mg/dl (74-100); Potassium 4.1 mmoL/L (3.5-5.1); Sodium 137 mmol/L (136-145)
== END 2024-06-09 23:59 | disposition home or self-care (01) ==
LOC: LAB 09:36
PROVIDERS: PCP Internal Medicine; Visit Provider Internal Medicine
DX: I12.9 Hypertensive chronic kidney disease with stage 1 through stage 4 chronic kidney disease, or unspecified chronic kidney disease (principal); I10 Essential (primary) hypertension
CPT/HCPCS: 36415; 80048

== ENCOUNTER 2024-09-04 09:10 | Outpatient (CLI) | payer MEDICARE, SELFPAY ==
--- OUTSIDE RECORDS SUMMARY | 2024-09-04 09:15 | XMS_ITS | Clinical Summary ---
Author Organization [facility] Address [address] [place] [address] Phone Care Team Providers Care System Support Administrator Name Role Phone Unavailable Primary Care Provider Unavailabl e Allergies No known active allergies Medications No known medications Immunizations Immunization Administration Dates Next Due Tdap 02/22/2021 Social History Tobacco Use Types Packs/Day Years Used Date Smoking Tobacco: Never Smokeless Tobacco: Never Sex and Gender Information Value Date Recorded Sex Assigned at Not on file Legal Sex Male 2:13 PM EDT Gender Identity Not on file Sexual Orientation Not on file Obstetrics History Last Filed Vital Signs Vital Sign Reading Time Taken Comments Blood Pressure 198/83 02/22/2021 12:07 PM EST Pulse 73 02/22/2021 12:07 PM EST Temperature 36.7 C (98 F) 02/22/2021 12:07 PM EST Respiratory Rate 16 02/22/2021 12:07 PM EST Oxygen Saturation 97% 02/22/2021 12:07 PM EST Inhaled Oxygen Concentration - - Weight 80.7 kg (178 lb) 02/22/2021 12:07 PM EST Height 180.3 cm (5' 11 ) 02/22/2021 12:07 PM EST Body Mass Index 24.83 02/22/2021 12:07 PM EST Plan of Treatment Health Maintenance Due Date Last Done Comments Wellness Exam Medicare 1943 Pneumococcal Vaccine 50+ (1 of 1 - PCV) 07/08/1991 Zoster (1 of 2) 07/08/1991 RSV or 60+ (1 - 1-dose 75+ series) 2016 COVID-19 Vaccine (2023-2 5 season) 2023 12/26/2020, 05/23/2020, 05/03/2020 Influenza Vaccine (Season Ended) 2024 DTaP/TDaP/Td (2 - Td or Tdap) 02/22/2031 02/22/2021 Hepatitis B Vaccine Aged Out No longe r eligible based on patient's age to complete this topic Meningococcal B Vaccine Aged Out No l onger eligible based on patient's age to complete this topic Insurance MEDICARE [place] PART A AND B
[2024-09-04 09:59] LABS: Basophils # 0.1 K/mm3 (0-0.2); Basophils % 0.6 % (0.1-2.0); Eosinophils # 0.1 Kmm3 (0.0-0.4); Eosinophils % 1.5 % (0.1-12.0); Hematocrit 47.2 % (42.0-52.0); Hemoglobin 15.4 g/dL (14.1-18.0); Immature Granulocytes # 0.02 10^3uL; Immature Granulocytes % 0.2 %; Lymphocytes # 2.7 K/mm3 (0.7-4.5); Lymphocytes % 30.9 % (10-50); Mean Corpuscular HGB Conc 32.6 g/dL (31.8-35.4); Mean Corpuscular Hemoglobin 28.4 pg (27.0-31.2); Mean Corpuscular Volume 87.1 fl (80-94); Mean Platelet Volume 9.5 fl (7.4-10.4); Monocytes # 0.8 K/mm3 (0.1-1.0); Monocytes % 9.2 % (1.7-9.3); Neutrophils # 5.1 K/mm3 (1.8-7.8); Neutrophils % 57.6 % (37.0-80.0); Nucleated Red Blood Cells # 0 10^3/uL; Nucleated Red Blood Cells % 0 %; Platelet Count 209 K/mm3 (142-424); Red Blood Count 5.42 M/mm3 (4.60-6.20); White Blood Count 8.9 K/mm3 (4.8-10.8)
[2024-09-04 10:30] LABS: Alanine Aminotransferase 25 U/L (12-78); Albumin Level 4.5 g/dl (3.5-5.0); Albumin/Globulin Ratio 1.6 (1.1-1.8); Alkaline Phosphatase 114 U/L (38-126); Anion Gap 12.3 mEq/L (5-15); Aspartate Amino Transferase 29 U/L (17-59); Bilirubin,Total 1.2 mg/dl (0.2-1.3); Blood Urea Nitrogen 21 mg/dl (9-20); Calcium 9.4 mg/dl (8.4-10.2); Carbon Dioxide 25 mmol/L (22.0-30.0); Chloride 107 mmol/L (98-107); Cholesterol 137 mg/dl (140-200); Estimated Glomerular Filt Rate 53 ml/min (>60); GFR (African American) 64 ML/MIN (>60); Globulin 2.9 g/dL (1.3-3.2); Glucose 104 mg/dl (74-100); HDL Cholesterol 46 mg/dl (40-60); Potassium 4.3 mmoL/L (3.5-5.1); Sodium 140 mmol/L (136-145); Total Protein,Serum 7.4 g/dl (6.3-8.2); Triglycerides 148 mg/dl (30-150); VLDL Cholesterol 30 mg/dL (0-40)
[2024-09-04 10:41] LABS: Direct LDL Cholesterol 50.01 mg/dL (100-129)
== END 2024-09-04 23:59 | disposition home or self-care (01) ==
LOC: LAB 09:12
PROVIDERS: PCP Internal Medicine; Visit Provider Internal Medicine
DX: E78.5 Hyperlipidemia, unspecified (principal); I10 Essential (primary) hypertension
CPT/HCPCS: 36415; 80053; 80061; 85025

== ENCOUNTER 2024-10-26 20:29 | Observation (INO) | payer MEDICARE, SELFPAY ==
[2024-10-26] VITALS (9 sets, daily range): BP systolic 162–222; BP diastolic 83–105; PULSE 70–95; RESP 18; TEMP 36.6–36.8; O2SAT 96–100; BMI 24.8
--- NOTE | 2024-10-26 20:42 | ECG_ITS ---
APPROVED REPORT Exam: Resting ECG HR:70 bpm ECG Measurements Heart Rate 70 AXES AK 174 P 65 QRSd 117 QRS -12 QT 390 T 12 QTc 411 Conclusion SINUS RHYTHM POSSIBLE LEFT ATRIAL ENLARGEMENT [-0.1mV P-WAVE IN V1/V2] LOW QRS VOLTAGE IN PRECORDIAL LEADS [QRS DEFLECTION < 1.0 mV IN CHEST LEADS] INCOMPLETE RIGHT BUNDLE BRANCH BLOCK [90+ ms QRS DURATION, TERMINAL R IN V1/V2, 40+ ms S IN I/aVL/V4/V5/V6] POSSIBLE LEFT VENTRICULAR HYPERTROPHY [VOLTAGE CRITERIA PLUS LAE OR QRS WIDENING] No STEMI Electronically signed by : MAYLIN GONZALEZ, 10/28/2024 06:39:12
--- OUTSIDE RECORDS SUMMARY | 2024-10-26 20:43 | XMS_ITS | Clinical Summary ---
Author Organization [facility] Address [address] [place] [address] Care Team Providers Care Placement Specialist Name Role Phone Catarino Ireland MD Primary Care Provider [phone] Asif Marsh MD Unavailable [phone] Ronni Parikh MD Unavailable [phone] Kingston Porter MD Unavailable [phone] Ira Caldera NP Unavailable [phone] Allergies No known active allergies Medications aspirin 81 mg PO TbEC Take 81 mg by mouth daily. Active rosuvastatin (CRESTOR) 20 mg PO Tab Take 1 Tab by mouth nightly bedtime. 90 Tab 3 04/25/2013 Active traZODone (DESYREL) 50 mg tablet Take 50 mg by mouth nightly at bedtime. Active UBIDECARENONE (CO Q-10 PO) Take by mouth daily. Active ergocalciferol, vitamin D2, (VITAMIN D PO) Take by mouth daily. Active irbesartan (AVAPRO) 150 mg Tablet Take 150 mg by mouth nightly. Active tamsulosin (FLOMAX) 0.4 mg sustained release capsule Take by mouth daily. 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 CAD (coronary artery disease), [place] coronary a rtery 01/19/2013 Abnormal stress test 01/03/2013 Primary hypertension 01/03/2013 Dyslipidemia 01/03/2013 Exertional chest pain 01/03/2013 Diabetes mellitus 01/03/2013 Family History Medical History Relation Name Comments Diabetes Father Heart Surgery Father High Cholesterol Mother Diabetes Paternal Grandfather Anesthesia Complications Neg Hx Relation Name Status Comments Father Mother Paternal Grandfather Social History Tobacco Use Types Packs/Day Years Used Date Smoking Tobacco: Never Smokeless Tobacco: Never Tobacco Cessation:Counseling Given: No Comments:Not needed Alcohol Use Standard Drinks/Week Comments No 0 (1 standard drink = 0.6 oz pur e alcohol) Sex and Gender Information Value Date Recorded Sex Assigned at Not on file Legal Sex Male 1:55 PM EDT Gender Identity Not on file Sexual Orientation Not on file Last Filed Vital Signs Vital Sign Reading Time Taken Comments Blood Pressure 174/76 02/10/2024 2:05 PM EST Pulse 61 02/10/2024 2:05 PM EST Temperature 36.2 C (97.2 F) 02/15/2013 11:12 AM EST Respiratory Rate 18 02/05/2013 11:21 AM EST Oxygen Saturation 96% 02/05/2013 11:21 AM EST Inhaled Oxygen Concentration - - Weight 81.6 kg (180 lb) 02/10/2024 2:05 PM EST Height 180.3 cm (5' 11 ) 02/10/2024 2:05 PM EST Body Mass Index 25.1 02/10/2024 2:05 PM EST Plan of Treatment Upcoming Encounters Date Type Department Care Team (Late st Contact Info) Description 02/09/2025 3:00 PM EST Appointment [facility] Physicians - Heart & Vascular, Paulette Roche [address] [employer] [facility] [address] Gui Ta Jr., MD [address] [employer] [facility] [address] Health Maintenance Due Date Last Done Comments Diabetes Mellitus Foot Care (Yearly) 1941 Diabetes Mellitus Microalbum in (Yearly) 1940 Pneumococcal Vaccine: 50+ Ye ars (1 of 1 - PCV) 07/08/1991 Zoster-RZV(Shingrix) (1 of 2) 07/08/1991 Fall Risk Assessment 2006 Diabetes A1c Monitoring 07/26/2013 01/25/2013 Renal Monitoring 04/17/2016 04/17/2015, , 04/18/2013, Additional history exists RSV Vaccines (1 - 1-dose 75+ series) 2016 Lipid Monitoring 02/05/2021 02/06/2020, , 11/29/2018, Additional history exists COVID-19 Vaccine ( - 2023-2 5 season) 2023 12/26/2020, 05/23/2020, 05/03/2020 Advance Care Planning 03/29/2024 BMI Counseling 03/29/2024 Depression Screening 03/29/2024 Influenza Vaccination (#1) 2024 Tetanus Vaccination (Every 1 0 Years) 02/22/2031 02/22/2021 Lipid Screening Discontinued 02/06/2020, 07/28, 11/29/2018, Additional history exists Procedures Procedure Name Priority Date/Time Associated Diagnosis Comments LIPID PROFILE Routine 02/06/2020 COMPREHENSIVE METABOLIC PANEL Routine 04/17/2015 HGB, A1C (GLYCOHEMOGLOBIN) Routine 01/25/2013 2:15 PM EDT from Last 3 Months or Most Recently Relevant to Health Maintenance Results * LIPID PROFILE (02/06/2020) Triglycerides 167 mg/dL TC EX TERNAL LAB Cholesterol 162 mg/dL TC EXTE RNAL LAB LDL Calculated 33 mg/dL [facility] E XTERNAL LAB HDL 73 TC TYPE [facility] AL LAB Plasma us Historical Provider CHEMISTRY ORDERABLES Final R esult [facility] EXTERNAL LAB [address] [id number], [facility] * COMPREHENSIVE METABOLIC PANEL (04/17/2015) Glucose 107 CO2 27 mmol/L Creatinine 1.3 mg/dL Potassium 3.6 mmol/L Sodium 142 mmol/L Calcium 9.3 mg/dL BUN 22 Chloride 105 Plasma Historical Provider CHEMISTRY ORDERABLES Final R esult * (ABNORMAL) HGB, A1C (GLYCOHEMOGLOBIN) (01/25/2013 2:15 PM EDT) Hgb A1C 6.0(H) 4.0 - 5.7 % [facility] EXTERNAL [facility] Comment: Reference Ranges for Hgb A1c: Increased risk for diabetes: 5.7-6.4% Probable diabetes: >=6.5% Desired control for previously diagnosed diabetics: <7.0% Many conditions can affect the Hgb A1c value including hemolysis, recent transfusion, hemoglobin variants, thalassemias, severe chronic hepatic and renal disease and iron deficiency among others. Results must be interpreted in the proper clinical context. This assay is traceable to the NGSP and DCCT Reference methods. 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 Advance Directives and Livin g Will 04/17/2014 2:20 PM Living Will 04/17/2014 * Full Code (Latest Code Status on File) Date Activated Date Inactivated Comments 02/02/2013 3:43 PM 02/05/2013 6:32 PM * Full Code Date Activated Date Inactivated Comments 02/02/2013 3:43 PM 02/02/2013 3:43 PM * Full Code Date Activated Date Inactivated Comments 02/01/2013 12:15 PM 02/02/2013 3:43 PM * Full Code Date Activated Date Inactivated Comments 01/17/2013 5:13 AM 01/17/2013 4:28 PM Care Teams Placement Specialist Relationship Specialty Start Date End Date Catarino Ireland MD [address] [place] [address] PCP - General 01/19/13 Asif Marsh MD [address] [place] [address] [address] [place], [place] [id number] Cardiology 10/22/20 Ronni Parikh MD [address] [place], [place] [id number] Cardiology 11/12/21 Kingston Porter MD [address] [place] [address] [address] [place] [address] Cardiology 04/05/22 Ira Caldera NP [address] [place] [address] Nurse Practitioner Nurse Practitioner 05/19/22
--- OUTSIDE RECORDS SUMMARY | 2024-10-26 20:43 | XMS_ITS | Encounter Summary ---
Author Organization [facility] Address [address] [place] [address] Care Team Providers Care Boat Tester Name Role Phone Catarino Ireland MD Primary Care Provider [phone] Asif Marsh MD Unavailable Ronni Parikh MD Unavailable [phone] [place] Porter MD Unavailable [phone] Ira Caldera NP Unavailable [phone] Encounter Details Date Type Department Care Team (Late st Contact Info) Description 02/14/2013 Abstract [facility] Physicians - Heart & Vascular, [facility] [address] [place] [address] [address] [place] [phone] Kingston Porter MD [address] [facility] [address] [place] [address] Social History Tobacco Use Types Packs/Day Years Used Date Smoking Tobacco: Never Smokeless Tobacco: Never Alcohol Use Standard Drinks/Week Comments No 0 (1 standard drink = 0.6 oz pur e alcohol) Sex and Gender Information Value Date Recorded Sex Assigned at Not on file Legal Sex Male 1:55 PM EDT Gender Identity Not on file Sexual Orientation Not on file documented as of this encounter Plan of Treatment Upcoming Encounters Date Type Department Care Team (Late st Contact Info) Description 02/09/2025 3:00 PM EST Appointment [facility] Physicians - Heart & Vascular, [address] [place] [address] Gui Ta Jr., MD [address] [facility] [address] [place] [address] documented as of this encounter Procedures Procedure Name Priority Date/Time Associated Diagnosis Comments ABSTRACTED CV SURGERY ([facility]) Routine 02/01/2013 documented in this encounter Results * ABSTRACTED CV SURGERY ([facility]) (02/01/2013) CV Surg Test CABG x4 OBREGON to LAD SVG to Dx SVG -OM-PDA [facility] Provider CARDIAC SERVICES ORDERABLES Final Result documented in this encounter Visit Diagnoses Not on filedocumented in this encounter Care Teams Boat Tester Relationship Specialty Start Date End Date Catarino Ireland MD [address] [place] [address] PCP - General 01/19/13 Asif Marhs MD 3 [facility]. [address] [place], [place] [address] Cardiology 10/22/20 Ronni Parikh MD 1954 [facility] [address] [place] [address] Cardiology 11/12/21 Kingston Porter MD [address] [facility] [address] [place], [place] [address] Cardiology 04/05/22 Ira Caldera NP [address] [facility] [place] [address] Nurse Practitioner Nurse Practitioner 05/19/22 documented as of this encounter
--- OUTSIDE RECORDS SUMMARY | 2024-10-26 20:43 | XMS_ITS | Encounter Summary ---
Author Organization [facility] Address [address] [place] [address] Care Team Providers Care Pantograph Machine Set Up Operator Name Role Phone Catarino Ireland MD Primary Care Provider [phone] Asif Marsh MD Unavailable [phone] Ronni Parikh MD Unavailable [phone] [place] Porter MD Unavailable [phone] Ira Caldera NP Unavailable [phone] Encounter Details Date Type Department Care Team (Late st Contact Info) Description 11/11/2021 Abstract [facility] Physicians - Heart & Vascular, [facility] [address] [place] [address] [place] [address] Malika Heaton, AIDA [address] [place] [address] Social History Tobacco Use Types Packs/Day Years Used Date Smoking Tobacco: Never Smokeless Tobacco: Never Alcohol Use Standard Drinks/Week Comments No 0 (1 standard drink = 0.6 oz pur e alcohol) Sex and Gender Information Value Date Recorded Sex Assigned at Not on file Legal Sex Male 1:55 PM EDT Gender Identity Not on file Sexual Orientation Not on file COVID-19 Exposure Response Date Recorded In the last 10 days, have yo u been in contact with someone who was confirmed or suspected to have Coronavirus/COVID-19? No / Unsure 11/12/2021 1:39 PM EDT documented as of this encounter Plan of Treatment Upcoming Encounters Date Type Department Care Team (Late st Contact Info) Description 02/09/2025 3:00 PM EST Appointment [facility] Physicians - Heart & Vascular, [place] [address] [place] [address] Gui Ta Jr., MD [address] [place], [place] [address] documented as of this encounter Procedures Procedure Name Priority Date/Time Associated Diagnosis Comments ABSTRACTED VASCULAR TEST ([facility]) Routine 10/30/2016 EJECTION FRACTION % FROM TEST Routine 01/17/2013 EJECTION FRACTION % FROM TEST Routine 01/17/2013 ABSTRACTED ECHO ([facility]) Routine 01/17/2013 documented in this encounter Results * ABSTRACTED VASCULAR TEST ([facility]) (10/30/2016) Vascular Test Carotid - BICA less than 50% [facility] us Historical Provider CARDIAC SERVICES ORDERABLES Final Result [facility] * EJECTION FRACTION % - MECHANISM (01/17/2013) EF Mechanism Echo [facility] us Historical Provider DUMMY Final Result [facility] [address] * EJECTION FRACTION % FROM TEST (01/17/2013) EF 63.00 % [facility] Historical Provider DUMMY Final Result Performing Organization Address City/[facility]/ZIP Co de Phone Number [facility] EXTERNAL [facility] [address] * ABSTRACTED ECHO ([facility]) (01/17/2013) Echo DD1 [facility] us Historical Provider CARDIAC SERVICES ORDERABLES Final Result [facility] [address] documented in this encounter Visit Diagnoses Not on filedocumented in this encounter Care Teams Pantograph Machine Set Up Operator Relationship Specialty Start Date End Date Catarino Ireland MD [address] [place] [id number] PCP - General 01/19/13 [place] [address] [place], [place] [address]. [address] [place] [address] Cardiology 10/22/20 Ronni Parikh MD 1954 [facility]. [address] [place] [address] Cardiology 11/12/21 Kingston Porter MD [address] [facility] [address] [place] [address] Cardiology 04/05/22 Ira Caldera NP [address] [facility] [place], [place] [id number] Nurse Practitioner Nurse Practitioner 05/19/22 documented as of this encounter
--- OUTSIDE RECORDS SUMMARY | 2024-10-26 20:43 | XMS_ITS | Encounter Summary ---
Author Organization [facility] Address [address] [place] [address] Care Team Providers Care Tax Associate Attorney Name Role Phone Catarino Ireland MD Primary Care Provider [phone] Asif Marsh MD Unavailable Ronni Parikh MD Unavailable [phone] [place] Porter MD Unavailable [phone] Ira Caldera NP Unavailable [phone] Encounter Details Date Type Department Care Team (Late st Contact Info) Description 01/23/2013 Abstract [facility] Physicians - Heart & Vascular, [facility] [address] [place] [address] [address] [place] [id number] Kingston Porter MD [address] [facility] [address] [place] [address] Social History Tobacco Use Types [...] Description 02/09/2025 3:00 PM EST Appointment [facility] Physicians - Heart & Vascular, [address] [place] [address] Gui Ta Jr., MD 1954 [facility] [address] [place] [address] documented as of this encounter Visit Diagnoses Not on filedocumented in this encounter Care Teams Tax Associate Attorney Relationship Specialty Start Date End Date Catarino Ireland MD [address] [facility] [address] [place] [address] PCP - General 01/19/13 Asif Marsh MD [address] [place] [address] [address] [place], [place] [address] Cardiology 10/22/20 Ronni Parikh MD [address] [facility] [address] [place] [address] Cardiology 11/12/21 Kingston Porter MD [address] [place] [address] [address] [place], [place] [address] Cardiology 04/05/22 Ira Caldera NP 75[address] [facility] [place] [address] Nurse Practitioner Nurse Practitioner 05/19/22 documented as of this encounter
--- OUTSIDE RECORDS SUMMARY | 2024-10-26 20:43 | XMS_ITS | Encounter Summary ---
Author Organization [facility] Address [address] [place] [address] Care Team Providers Care Bell Neck Hammerer Name Role Phone Catarino Ireland MD Primary Care Provider [phone] Asif Marsh MD Unavailable [phone] Ronni Parikh MD Unavailable [phone] [place] Porter MD Unavailable [phone] Ira Caldera NP Unavailable [phone] Encounter Details Date Type Department Care Team (Late st Contact Info) Description 05/06/2016 Lab Results [facility] Physicians - Heart & Vascular, [facility] [address] [place] [address] [address] [place] [phone] Roxanne Salazar, AIDA [address] [facility] [address] [place] [address] Social History Tobacco Use Types [...] Description 02/09/2025 3:00 PM EST Appointment [facility] Physicians - Heart & Vascular, [address] [place] [address] Gui Ta Jr., MD 1954 [facility] [address] [place], [place] [id number] documented as of this encounter Procedures Procedure Name Priority Date/Time Associated Diagnosis Comments LIPID PROFILE Routine 05/06/2016 documented in this encounter Results * LIPID PROFILE (05/06/2016) Cholesterol 141 mg/dL [facility] LDL Calculated 51 mg/dL [facility] XTERNAL [facility] HDL 57 [facility] Triglycerides 166 mg/dL [facility] TER[facility] AST 11 U/L [facility] ALT 29 U/L [facility] Plasma 05/06/2016 us Historical Provider CHEMISTRY ORDERABLES Final R esult [facility] [address] documented in this encounter Visit Diagnoses Not on filedocumented in this encounter Care Teams Bell Neck Hammerer Relationship Specialty Start Date End Date Catarino Ireland MD [address] [facility] [address] [place] [address] PCP - General 01/19/13 Asif Marsh MD 2[address] [facility] [address] [place] [address] Cardiology 10/22/20 Ronni Parikh MD [address] [facility] [place] [address] Cardiology 11/12/21 Kingston Porter MD [facility]3 [facility] [address] [place] [address] Cardiology 04/05/22 Ira Caldera NP [address] [place] [address] Nurse Practitioner Nurse Practitioner 05/19/22 documented as of this encounter
--- OUTSIDE RECORDS SUMMARY | 2024-10-26 20:43 | XMS_ITS | Encounter Summary ---
Author Organization [facility] Address [address] [place] [address] Care Team Providers Care Checker Dump Grounds Name Role Phone Catarino Ireland MD Primary Care Provider [phone] Asif Mrash MD Unavailable [phone] Ronni Parikh MD Unavailable [phone] [place] Porter MD Unavailable [phone] Ira Caldera NP Unavailable [phone] Reason for Visit * Reason Comments Medications Refill Encounter Details Date Type Department Care Team (Late st Contact Info) Description 06/28/2023 Refill [facility] Physicians - Heart & Vascular, [address] [place] [address] Asif Marsh MD [address] [place] [address] Medications Refill Social History Tobacco Use Types Packs/Day Years Used Date Smoking Tobacco: Never Smokeless Tobacco: Never Comments:Not needed Alcohol Use Standard Drinks/Week Comments [...] Description 02/09/2025 3:00 PM EST Appointment [facility] Physicians - Heart & Vascular, [place] [address] [facility] [address] [place] [phone] Gui Ta Jr., MD 1954 [facility] [address] [place] [id number] documented as of this encounter Visit Diagnoses Not on filedocumented in this encounter Care Teams Checker Dump Grounds Relationship Specialty Start Date End Date Catarino Ireland MD [address] [place] [id number] PCP - General 01/19/13 Asif Marsh MD [address] [place] [address] [address] [place], [place] [address] Cardiology 10/22/20 Ronni Parikh MD 1954 [facility]. [address] [place] [id number] Cardiology 11/12/21 [place] Porter MD [address] [place] [address] [address] [place] [address] Cardiology 04/05/22 Ira Caldera NP [address] [place] [address]. [place] [address] Nurse Practitioner Nurse Practitioner 05/19/22 documented as of this encounter
--- OUTSIDE RECORDS SUMMARY | 2024-10-26 20:43 | XMS_ITS | Clinical Summary ---
Author Organization [facility] Address [address] [place] [address] Phone Care Team Providers Care Fastener Sewing Machine Operator Name Role Phone Unavailable Primary Care Provider [...] season) 2023 12/26/2020, 05/23/2020, 05/03/2020 Influenza Vaccine (#1) 2024 DTaP/TDaP/Td (2 - Td or Tdap) 02/22/2031 02/22/2021 Hepatitis B Vaccine Aged Out No longe r eligible based on patient's age to complete this topic Meningococcal B Vaccine Aged Out No l onger eligible based on patient's age to complete this topic Insurance MEDICARE [place] PART A AND B
--- NOTE | 2024-10-26 20:45 | CT_ITS ---
PROCEDURE INFORMATION: Exam: CTA Head With Contrast, Arteriography Exam date and time: 10/26/2024 9:21 PM Age: 84 years old Clinical indication: Syncope and collapse; Additional info: Recurrent syncope TECHNIQUE: Imaging protocol: Computed tomographic angiography of the head with contrast. Exam focused on the arteries. 3D rendering (Not supervised by radiologist): MIP and/or 3D reconstructed images were created by the technologist. Radiation optimization: All CT scans at this facility use at least one of these dose optimization techniques: automated exposure control; mA and/or kV adjustment per patient size (includes targeted exams where dose is matched to clinical indication); or iterative reconstruction. Contrast material: ISOVUE; Contrast volume: 80 ml; Contrast route: INTRAVENOUS (IV); COMPARISON: CT HEAD/BRAIN WO CON 10/26/2024 9:17 PM FINDINGS: ANTERIOR CIRCULATION: Right internal carotid artery: Intracranial segment is patent with no significant stenosis. No aneurysm. Right middle cerebral artery: No occlusion or significant stenosis. No aneurysm. 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 Flow within the A2 segment established by means of an anterior communicating artery. No occlusion or significant stenosis. No aneurysm. Left internal carotid artery: Intracranial segment is patent with no significant stenosis. No aneurysm. Left middle cerebral artery: No occlusion or significant stenosis. No aneurysm. Left anterior cerebral artery: No occlusion or significant stenosis. No aneurysm. POSTERIOR CIRCULATION: Right vertebral artery: Diminutive vessel which terminates as the PICA. No occlusion or significant stenosis. No aneurysm. Left vertebral artery: No occlusion or significant stenosis. No aneurysm. Basilar artery: No occlusion or significant stenosis. No aneurysm. Right posterior cerebral artery: No occlusion or significant stenosis. No aneurysm. Left posterior cerebral artery: No occlusion or significant stenosis. No aneurysm. Brain: No definite mass, mass effect, or midline shift. Cerebral ventricles: No ventriculomegaly. Bones/joints: Unremarkable. No acute fracture. Soft tissues: Unremarkable. IMPRESSION: No large vessel stenosis or occlusion. PROCEDURE INFORMATION: Exam: CTA Neck With Contrast Exam date and time: 10/26/2024 9:21 PM Age: 84 years old Clinical indication: Syncope and collapse; Additional info: Recurrent syncope TECHNIQUE: Imaging protocol: Computed tomographic angiography of the neck with contrast. Exam focused on the cervical segments of the vasculature. 3D rendering (Not supervised by radiologist): MIP and/or 3D reconstructed images were created by the technologist. Radiation optimization: All CT scans at this facility use at least one of these dose optimization techniques: automated exposure control; mA and/or kV adjustment per patient size (includes targeted exams where dose is matched to clinical indication); or iterative reconstruction. Contrast material: ISOVUE; Contrast volume: 80 ml; Contrast route: INTRAVENOUS (IV); COMPARISON: 1. CT CERVICAL SPINE WO CON 10/26/2024 9:[address] CHEST WITHOUT CONTRAST 04/21/2022 FINDINGS: Right common carotid artery: No stenosis. No dissection or occlusion. Right internal carotid artery: Mild stenosis at the origin. No dissection or occlusion. Right external carotid artery: No occlusion or stenosis of the origin. Left common carotid artery: No stenosis. No dissection or occlusion. Left internal carotid artery: Mild stenosis of the origin/proximal cervical segment. No dissection or occlusion. Left external carotid artery: No occlusion or stenosis of the origin. Right vertebral artery: Diminutive vessel. No stenosis. No dissection or occlusion. Left vertebral artery: Dominant vessel. Mild origin/proximal V1 segment stenosis. No dissection or occlusion. Soft tissues: Unremarkable. Bones/joints: No acute fracture. Degenerative changes. Lungs: Stable 5 mm right upper lobe pulmonary nodule. IMPRESSION: 1. Mild right internal carotid artery origin stenosis. Mild left internal carotid artery origin/proximal cervical segment stenosis. 2. Mild left vertebral artery origin/proximal V1 segment stenosis. REFERENCES: NASCET CRITERIA. The degree of stenosis in the cervical segment of the internal carotid artery is based on NASCET criteria. Normal is no stenosis. Mild is less than 50% stenosis. Moderate is 50-69% stenosis. Severe is 70% to 99% stenosis. Total occlusion is no detectable patent lumen.
--- NOTE | 2024-10-26 20:45 | CT_ITS ---
PROCEDURE INFORMATION: Exam: CTA Chest With Contrast Exam date and time: 10/26/2024 9:24 PM Age: 84 years old Clinical indication: Other: Recurrent syncope; Additional info: Rcurrent syncope TECHNIQUE: Imaging protocol: Computed tomographic angiography of the chest with contrast. Exam focused on the arteries. 3D rendering (Not supervised by radiologist): MIP and/or 3D reconstructed images were created by the technologist. Total images: 897 Radiation optimization: All CT scans at this facility use at least one of these dose optimization techniques: automated exposure control; mA and/or kV adjustment per patient size (includes targeted exams where dose is matched to clinical indication); or iterative reconstruction. Contrast material: ISOVUE; Contrast volume: 70 ml; Contrast route: INTRAVENOUS (IV); COMPARISON: CT CHEST WO CON 04/21/2022 10:21 AM FINDINGS: Pulmonary arteries: Adequate contrast opacification of the pulmonary arteries. Main pulmonary artery is normal in caliber. No acute pulmonary emboli. Aorta: Atherosclerotic thoracic aorta without aneurysm or dissection. Cardiac pulsation artifact in the ascending aorta. Lungs: The trachea and main bronchi are patent. Mild bilateral dependent atelectasis. No acute infiltrate or airspace consolidation. Scattered calcified and noncalcified pulmonary nodules, similar to previous exam. Minor chronic scarring bilaterally. Pleural spaces: Unremarkable. No pneumothorax. No pleural effusion. Heart: Normal heart size. No pericardial effusion. Coronary arteries: Coronary artery calcifications. Mediastinal space: No mediastinal mass or hematoma. Lymph nodes: No mediastinal or hilar lymphadenopathy. Diaphragm: Probable tiny sliding hiatal hernia. Intraperitoneal space: No acute process in the upper abdomen. Bones/joints: Status post median sternotomy. Mild pectus excavatum. Moderate degenerative changes of the thoracic spine. Minor thoracic dextrocurvature. Soft tissues: Unremarkable. IMPRESSION: 1. No acute intrathoracic process. 2. No acute pulmonary emboli. 3. Clear lungs. 4. Scattered calcified and noncalcified bilateral pulmonary nodules, most likely granulomatous, unchanged from April 21, 2022 and considered benign. 5. Additional chronic and incidental findings.
--- NOTE | 2024-10-26 20:45 | CT_ITS ---
PROCEDURE INFORMATION: Exam: CT Head Without Contrast Exam date and time: 10/26/2024 9:17 PM Age: 84 years old Clinical indication: Syncope and collapse; Additional info: Recurrent syncope TECHNIQUE: Imaging protocol: Computed tomography of the head without contrast. Total images: 583 Radiation optimization: All CT scans at this facility use at least one of these dose optimization techniques: automated exposure control; mA and/or kV adjustment per patient size (includes targeted exams where dose is matched to clinical indication); or iterative reconstruction. COMPARISON: CT HEAD/BRAIN WO CON 12/19/2021 9:49 AM FINDINGS: Brain: No acute intracranial hemorrhage, midline shift, or mass. Mild to moderate cortical and cerebellar atrophy. Mild remote white matter small-vessel ischemic changes. No acute territorial infarct. Basilar cisterns are preserved. Cerebral ventricles: Mild ventricular prominence compatible degree of central involution. Paranasal sinuses: Visualized sinuses are unremarkable. No fluid levels. Mastoid air cells: Visualized mastoid air cells are well aerated. Orbital cavities: Bilateral orbital lens replacement. Bones: Unremarkable. No acute fracture. Soft tissues: Unremarkable. IMPRESSION: No acute intracranial process.
[2024-10-26 20:57] LABS: Hematocrit 44.5 % (42.0-52.0); Hemoglobin 15.3 g/dL (14.1-18.0); Immature Granulocytes % 0.5 %; Mean Corpuscular HGB Conc 34.4 g/dL (31.8-35.4); Mean Corpuscular Hemoglobin 29.8 pg (27.0-31.2); Mean Corpuscular Volume 86.6 fl (80-94); Nucleated Red Blood Cells % 0 %; Platelet Count 219 K/mm3 (142-424); Red Blood Count 5.14 M/mm3 (4.60-6.20); Red Cell Distribution Width-SD 44.7 fL; White Blood Count 10.8 K/mm3 (4.8-10.8)
[2024-10-26 20:59] LABS: Alanine Aminotransferase 26 U/L (12-78); Albumin Level 4.8 g/dl (3.5-5.0); Albumin/Globulin Ratio 1.5 (1.1-1.8); Alkaline Phosphatase 122 U/L (38-126); Anion Gap 11.9 mEq/L (5-15); Aspartate Amino Transferase 33 U/L (17-59); Bilirubin,Total 0.8 mg/dl (0.2-1.3); Blood Urea Nitrogen 24 mg/dl (9-20); Calcium 10.0 mg/dl (8.4-10.2); Carbon Dioxide 26 mmol/L (22.0-30.0); Chloride 104 mmol/L (98-107); Creatinine Clearance Estimated 46 mL/min (50-200); Creatinine,Serum 1.40 mg/dl (0.66-1.25); Estimated Glomerular Filt Rate 48 ml/min (>60); GFR (African American) 59 ML/MIN (>60); Globulin 3.2 g/dL (1.3-3.2); Glucose 129 mg/dl (74-100); Magnesium 1.9 mg/dl (1.6-2.3); Potassium 3.9 mmoL/L (3.5-5.1); Sodium 138 mmol/L (136-145); Total Protein,Serum 8.0 g/dl (6.3-8.2)
[2024-10-26 21:04] LABS: Activated Partial Thrombo Time 24.8 seconds (22.8-30.6); INR 0.98 (0.9-1.1); Prothrombin Time 10.9 seconds (10.1-12.5)
--- NOTE | 2024-10-26 21:14 | CT_ITS ---
PROCEDURE INFORMATION: Exam: CT Cervical Spine Without Contrast Exam date and time: 10/26/2024 9:19 PM Age: 84 years old Clinical indication: Other: Recurrent syncope; Additional info: Syncope with collapse TECHNIQUE: Imaging protocol: Computed tomography of the cervical spine without contrast. Total images: 483 Radiation optimization: All CT scans at this facility use at least one of these dose optimization techniques: automated exposure control; mA and/or kV adjustment per patient size (includes targeted exams where dose is matched to clinical indication); or iterative reconstruction. COMPARISON: CT CERVICAL SPINE WO CON 10/26/2024 9:19 PM FINDINGS: Bones: Cervical vertebral body height and alignment is maintained. The base of the dens and the C1 and C2 articulations are preserved. The cervicooccipital junction is intact. Osseous fusion across the bilateral C3-C4 facet joint. Moderate degenerative facet joint spondylosis C2-C3 and C4-C5 with secondary mild foraminal stenosis bilaterally. The posterior elements are intact. Moderate to severe degenerative disc disease C6-C7. Partial osseous fusion across the disc space at C3-C4. No disc herniation, spinal canal stenosis, or significant neural foraminal encroachments. Lungs: Lung apices are clear. Vasculature: Mild calcifications bilateral carotid artery bifurcations. Soft tissues: No prevertebral soft tissue swelling. Unremarkable soft tissues of the neck. IMPRESSION: 1. No acute cervical fracture or traumatic subluxation. 2. Moderate to severe degenerative disc disease C6-C7. 3. Partial osseous fusion at C3-C4. 4. Moderate degenerative facet spondylosis C2-C3 and C4-C5 with secondary mild foraminal stenosis
[2024-10-26 21:16] LABS: T4 (Thyroxine) 9.4 ug/dl (5.53-11.0)
[2024-10-26 21:23] LABS: Troponin I < 0.01 ng/ml (0.00-0.034)
[2024-10-26] MEDS: IOPAMIDOL-370 (76%);100ML BOTTLE 150 ML IV (21:23)
[2024-10-26] MEDS: 0.9 % SODIUM CHLORIDE 50 ML VIAL 100 ML IV (21:23)
[2024-10-26] MEDS: SODIUM CHLORIDE 0.9% 10ML SYR (RAD ONLY) 10 ML IV (21:24)
[2024-10-26 21:29] LABS: Thyroid Stimulating Hormone 2.48 uIU/mL (0.465-4.68)
--- NOTE | 2024-10-26 22:06 | HMH.EDGENADL ---
Discharge Plan Disposition Patient Disposition: Admitted Condition: Good Clinical Impressions Clinical Impression: Syncope and collapse, Pulmonary nodule, Abrasion of scalp, High blood pressure Discharge ED Provider: Rosa Hilliard General Adult HPI General Chief complaint: Syncope Stated complaint: Passing out,low pulse Time Seen by Provider: 10/26/24 20:40 Mode of Arrival: Ambulatory Source of Information: Patient and Spouse Description of Symptoms (Recalled from ER Triage Doc. by RN): patient and family states that patient had a syncopal episode this evening in the kitchen. patient did lose conciousness and states he did hit his head. takes a baby aspirin daily. denies any other blood thinners. patient has cardiac history. History of Present Illness HPI narrative: This patient is an 84-year-old male with a history of BPH, hypertension, hyperlipidemia, CKD, CAD status post CABG presenting to the emergency department for evaluation with concern for multiple syncopal episodes. Patient states that for the last 3 days, he has had multiple syncopal episodes, at least 3 that he knows of. He states that he has no prodrome of symptoms at all, he just wakes up in a different position than when he originally started, such as going from sitting at the computer to lying on the ground next to the computer. He had a witnessed episode this evening in the kitchen, in which he did strike the back of his head and suffered a small wound to his head. Family states that he was out for just a few seconds with no seizure-like activity noted. No tongue biting, loss of bladder or bowel. He came to afterward with no postictal period. He had no prodrome of headache, visual disturbance, numbness, tingling, unilateral weakness, chest pain, shortness of breath, abdominal pain, back pain, or other concerns. He states has been eating and drinking as normal with the exception of last night, he did not eat all of his dinner. He does not take blood thinners but does take aspirin. He does take 150 mg of irbesartan for blood pressure but has not taken it yet today. He denies experiencing issues like this in the past. Related Data Home Medications ?Medication ?Instructions ?Recorded ?Confirmed aspirin 81 mg chewable tablet 81 mg PO DAILY 08/28/21 10/27/24 coenzyme Q10 100 mg capsule 100 mg PO DAILY 06/02/22 08/01/25 (CoQ-10) irbesartan 150 mg tablet 150 mg PO DAILY 08/28/21 10/27/24 ipratropium bromide 21 mcg (0.03 2 spray intranasal BID 10/27/24 10/27/24 %) nasal spray rosuvastatin 20 mg tablet 20 mg PO DAILY 10/27/24 10/27/24 trazodone 50 mg tablet 50 mg PO DAILY 10/27/24 10/27/24 Allergies Allergy/AdvReac Type Severity Reaction Status Date / Time No Known Allergies Allergy Verified 09/07/24 13:30 [facility] Disclaimer: The information contained in this section may have been updated after the patient was seen, as this information can be updated by other users. Social History Smoking Status: Never smoker alcohol intake: never substance use type: denies use current occupational status: retired Travel in the last 8 weeks?: None household members: spouse housing: house Have you lived/traveled outside [place] in past 30 days?: No Contact w/someone who lives/traveled outside US past 30 days?: No Exposure to someone with infectious disease in past 14 days?: No Do you have a fever (greater than 100.4 F or 38 C)?: No Have you tested positive for COVID-19?: No Exposed to someone with COVID-19 in past 14 days?: No Do you have a sore throat?: No Do you have a cough?: No Do you have any weakness?: No Do you have any diarrhea?: No Are you experiencing any unusual bleeding?: No Do you have any muscle aches/pain?: No Do you have any abdominal pain?: No Are you experiencing loss of taste or smell?: No Other Medical History Have you received the Pneumonia Vaccine: No ROS Obtained: Yes All systems reviewed & no additional complaints except as documented Physical Exam General General appearance: alert and in no apparent distress Head Head exam: normocephalic and other (Left occipital hematoma with a small superficial abrasion/skin avulsion overlying) Eye Eye exam: Present normal appearance, PERRL and EOMI ENT ENT exam: Present normal exam, normal oropharynx, mucous membranes moist and normal external ear exam Neck Neck exam: Present normal inspection, full ROM and trachea midline; Absent tenderness Chest Chest inspection: Present normal inspection and symmetric chest wall rise; Absent tenderness Respiratory Respiratory exam: Present normal lung sounds bilaterally; Absent respiratory distress, wheezes, stridor or accessory muscle use Cardiovascular Cardiovascular exam: Present regular rate and normal rhythm Abdominal Exam Abdominal exam: Present soft; Absent distention, tenderness or guarding Extremities Exam Extremities exam: Present normal inspection, full ROM and normal capillary refill; Absent tenderness or edema Back Exam Back exam: Present normal inspection and full ROM; Absent tenderness Neurological Exam Neurological exam: Present alert, oriented X3, CN II-XII intact and normal gait; Absent motor sensory deficit Psychiatric Psychiatric exam: Present normal affect and normal mood Skin Skin exam: Present warm and dry Medical Decision Making Medical Records Medical records reviewed: Yes I reviewed the patient's medical records. Screening: Per USPSTF and CDC recommendations, given the prevalence of disease in our region, it is our hospital?s policy to screen for HIV and viral Hepatitis for all patients aged 18 and over and those with ongoing risk factors. [place] [facility] Pt receiving controlled substance: No Vital Signs: 10/26/24 20:38 10/26/24 21:00 10/26/24 21:31 Temperature 97.8 F Temperature Source Oral Pulse Rate 70 83 Pulse Rate [Left] 75 Pulse Rate [Orthostatic Lying Bilateral] Pulse Rate [Orthostatic Sitting Bilateral] Pulse Rate [Orthostatic Standing Bilateral] Respiratory Rate 18 Blood Pressure 168/93 H 162/103 H Blood Pressure [Orthostatic Lying Right Arm] Blood Pressure [Orthostatic Sitting Right Arm] Blood Pressure [Orthostatic Standing Right Arm] Blood Pressure [Right Arm] 210/105 H Blood Pressure Mean [Right Arm] 140 Blood Pressure Source Blood Pressure Source [Right Arm] Automatic Cuff Blood Pressure Position Blood Pressure Position [Right Arm] Sitting 02 Sat by Pulse Oximetry 97 96 96 Oxygen Delivery Method Room Air Room Air Room Air 10/26/24 21:42 10/26/24 21:43 10/26/24 21:44 Temperature Temperature Source Pulse Rate 75 83 85 Pulse Rate [Left] Pulse Rate [Orthostatic Lying Bilateral] Pulse Rate [Orthostatic Sitting Bilateral] Pulse Rate [Orthostatic Standing Bilateral] Respiratory Rate Blood Pressure 167/83 H 163/85 H 163/94 H Blood Pressure [Orthostatic Lying Right Arm] Blood Pressure [Orthostatic Sitting Right Arm] Blood Pressure [Orthostatic Standing Right Arm] Blood Pressure [Right Arm] Blood Pressure Mean [Right Arm] Blood Pressure Source Blood Pressure Source [Right Arm] Blood Pressure Position Blood Pressure Position [Right Arm] 02 Sat by Pulse Oximetry 98 97 96 Oxygen Delivery Method Room Air Room Air Room Air 10/26/24 21:46 10/26/24 22:01 10/26/24 23:55 Temperature 98.3 F Temperature Source Oral Pulse Rate 78 75 Pulse Rate [Left] Pulse Rate [Orthostatic Lying Bilateral] 75 Pulse Rate [Orthostatic Sitting Bilateral] 83 Pulse Rate [Orthostatic Standing Bilateral] 95 H Respiratory Rate 18 Blood Pressure 222/104 H 167/98 H Blood Pressure [Orthostatic Lying Right Arm] 167/83 H Blood Pressure [Orthostatic Sitting Right Arm] 163/85 H Blood Pressure [Orthostatic Standing Right Arm] 163/94 H Blood Pressure [Right Arm] Blood Pressure Mean [Right Arm] Blood Pressure Source Automatic Cuff Blood Pressure Source [Right Arm] Blood Pressure Position Sitting Blood Pressure Position [Right Arm] 02 Sat by Pulse Oximetry 96 Oxygen Delivery Method Room Air Room Air Lab Data Lab results reviewed: Yes I reviewed the patient's lab results. Lab Results 10/26/24 20:41: WBC 10.8, RBC 5.14, Hgb 15.3, Hct 44.5, MCV 86.6, MCH 29.8, MCHC 34.4, RDW 14.0, Plt Count 219, MPV 9.4, Neut % (Auto) 57.1, Lymph % (Auto) 31.9, [place] % (Auto) 9.5 H, Eos % (Auto) 0.6, Baso % (Auto) 0.4, Neut # (Auto) 6.2, Lymph # (Auto) 3.5, [place] # (Auto) 1.0, Eos # (Auto) 0.1, Baso # (Auto) 0.0, PT 10.9, INR 0.98, APTT 24.8, Sodium 138, Potassium 3.9, Chloride 104, Carbon Dioxide 26, Anion Gap 11.9, BUN 24 H, Creatinine 1.40 H, Estimated Creat Clear 46, Estimated GFR 48 L, Est GFR ( Amer) 59, Glucose 129 H, Calcium 10.0, Magnesium 1.9, Total Bilirubin 0.8, AST 33, ALT 26, Alkaline Phosphatase 122, Troponin I < 0.01, Total Protein 8.0, Albumin 4.8, Globulin 3.2, Albumin/Globulin Ratio 1.5, TSH 2.48, Thyroxine (T4) 9.4 10/26/24 22:45: Urine Color Yellow, Urine Appearance Clear, Urine pH 6.0, Ur Specific [place] <= 1.005, Urine Protein Negative, Urine Glucose (UA) Negative, Urine Ketones Negative, Urine Blood Negative, Urine Nitrate Negative, Urine Bilirubin Negative, Urine Urobilinogen 0.2, Ur Leukocyte Esterase Negative, Urine WBC Occasional 10/26/24 20:41 10/26/24 20:41 Orders (Tests/Meds): ED MEDICATIONS Generic Name Dose Route Start Last Admin Trade Name Freq PRN Reason Stop Dose Admin Heparin Sodium (Porcine) 5,000 unit 10/27/24 09:00 Heparin Sodium 5,000 Unit/Ml Vial SUBCUT 11/26/24 08:59 TID ROSINA Sodium Chloride 10 ml 10/26/24 21:23 10/26/24 21:24 Sodium Chloride 0.9% 10ml Syr (Rad Only) IV 11/25/24 21:22 10 ml NEEDED PRN Administration Maintain IV Site Discontinued Medications Generic Name Dose Route Start Last Admin Trade Name Manq PRN Reason Stop Dose Admin Iopamidol 150 ml 10/26/24 21:23 10/26/24 21:23 Iopamidol-370 (76%);100ml Bottle IV 10/26/24 21:24 150 ml ONCE ONE Administration Irbesartan 75 mg 10/26/24 23:12 10/26/24 23:46 Irbesartan 75mg Tablet PO 10/26/24 23:13 75 mg ONCE ONE Administration Sodium Chloride 100 ml 10/26/24 21:23 10/26/24 21:23 0.9 % Sodium Chloride 50 Ml Vial IV 10/26/24 21:24 100 ml ONCE ONE Administration ORDERS Category Date Time Status CT angio chest PE protocol Stat Cat Scan 10/26/24 20:[address] angio head Stat Cat Scan 10/26/24 20:[address] angio neck Stat Cat Scan 10/26/24 20:[address] cervical spine wo con Stat Cat Scan 10/26/24 21:[address] head/brain wo con Stat Cat Scan 10/26/24 20:45 Completed Cardiology Consult [Consult to Cardiology] [CONS] Cons 10/26/24 23:08 Active Routine Activated Partial Thrombo Time Stat Lab 10/26/24 20:41 Completed CBC w/Auto Diff [Complete Blood Count Auto Diff] Stat Lab 10/26/24 20:41 Completed CMP [Comprehensive Metabolic Panel] Stat Lab 10/26/24 20:41 Completed Complete Blood Count Auto Diff AMLAB Lab 10/27/24 06:00 Ordered Comprehensive Metabolic Panel AMLAB Lab 10/27/24 06:00 Ordered MAG [Magnesium] Stat Lab 10/26/24 20:41 Completed Magnesium AMLAB Lab 10/27/24 06:00 Ordered Prothrombin Time INR Stat Lab 10/26/24 20:41 Completed T4 (Thyroxine) Stat Lab 10/26/24 20:41 Completed TSH [Thyroid Stimulating Hormone] Stat Lab 10/26/24 20:41 Completed Trop I [Troponin I] Stat Lab 10/26/24 20:41 Completed Troponin I Q3H Lab 10/26/24 23:45 Ordered Troponin I Q3H Lab 10/27/24 02:45 Ordered UA [Urinalysis and Microscopic] Stat Lab 10/26/24 22:45 Completed CA echo doppler complete Routine Y 10/26/24 23:12 Ordered ECG Data Tracing #1: I reviewed this ECG and interpreted as documented below: Normal sinus rhythm with a ventricular rate of 70 bpm. Incomplete right bundle branch block. No acute ST changes concerning for STEMI. Normal intervals ECG initial impression date: 10/26/24 ECG initial impression time: 20:13 Medical Decision Narrative: In summary, this patient is a 84-year-old male presenting to the Emergency Department for evaluation of multiple syncopal episodes over the last 3 days. Differential diagnoses considered include but are not limited to dysrhythmia, vasovagal syncope, orthostatic hypotension, carotid stenosis, intracranial hemorrhage, CVA, brain bleed, PE, aortic dissection among others. Ruling out the most morbid conditions drove assessment. It should be noted patient's history includes CAD status post CABG, hypertension, hyperlipidemia which may or may not be at goal therapy. This complicates all aspects of care by increasing patient's risk for morbidity. I reviewed patient's past medical records and noted prior evaluations by PCP is for maintenance of health. On exam, the patient is lying in bed in no acute distress. He is hypertensive but otherwise vitals are reassuring on cardiac telemetry. Cardiopulmonary and abdominal exams are benign, and he is neurologically intact. Workup included lab evaluation to evaluate for infectious, metabolic, cardiac derangements as well as CT head, CT cervical spine, CT angiogram head and neck, and CT angiogram of the chest.. I independently interpreted CT prior to the radiologist read and noted no large vessel occlusion, no intracranial bleeds or masses, no C-spine fracture or skull fracture, no PE or aortic dissection. Please see their read for final interpretation. Labs were obtained that demonstrated reassuring CBC with no significant leukocytosis or anemia. Chemistry is reassuring with kidney function is around his baseline. Initial troponin negative. No significant electrolyte derangements. Urinalysis is not concerning for infection. On reassessment, continues to be resting comfortably with no concerns or complaints, but he said multiple syncopal episodes over the last several days with history of CAD and advanced age. Given high risk syncope, I feel he would benefit from admission for further monitoring. I had an indirect discussion with the hospitalist who admitted the patient in stable condition. Critical Care Critical Care Time Critical Care Time: No
[2024-10-26 22:52] LABS: Microscopic, Urine URINE MICROSCOPIC (MICROSCOPIC)
[2024-10-26 22:53] LABS: Bilirubin,Urine Negative (Negative); Color,Urine YELLOW (Yellow); Glucose,Urine (UA) Negative (Negative); Ketones,Urine Negative (Negative); Leukocyte Esterase,Urine Negative (Negative); PH,Urine 6.0 (5.0-8.5); Protein,Urine Negative (Negative); Specific Gravity, Urine <= 1.005 (1.005-1.030); Urobilinogen,Urine 0.2 EU/dl (0.2)
--- NOTE | 2024-10-26 23:10 | EXP.HP ---
History of Present Illness *Admission Date: 10/26/24 *Reason for visit:: syncope *History of present illness: Mr. Ruiz is an 84-year-old male with history of CAD status post CABG 12 years ago, CKD, hyperlipidemia, hypertension, BPH, sleep disorder. He presented to the ER with family due to an episode of syncope in his kitchen this evening. Family reports he lost consciousness. They did not witness him hit his head. States he had a similar episode yesterday when working on his tractor. It was unwitnessed and he states he did not tell anyone. States that he has had multiple episodes over the past 3 days but does not recall having any prior to this. Denies any prodrome. No dizziness prior to the episode. No change in vision, palpitations, ringing in his ears, nausea or vomiting. Does not appear postictal. States he regains consciousness very quickly after the episodes. No loss of bladder or bowel. Denies biting his tongue. Episode witnessed by family today with reported loss of consciousness for just a few seconds and no seizure-like activity noted. States he has been eating and drinking fairly normally. Takes his medications at night. Is on a baby aspirin. Follows with his cardiology team in [facility] once a year. Workup in the ER with findings of normal hemoglobin at 15. White count normal at 10. Kidney function appears to be at baseline with BUN 24, creatinine 1.4. Electrolytes essentially normal. Troponin negative. Imaging relatively unremarkable. Medicine consulted for observation overnight due to syncopal events that are recurrent and further workup in the morning On evaluation, patient has a somewhat odd affect. Does not recall previously having episodes prior to the events the past 3 days. When asked about possible episodes several years ago in 2021, he states he is unaware of any. Of note, his chart shows an ER visit for similar presentation with mention of having similar episodes for quite some time . On room air, alert and oriented x 3. In no acute distress. [facility] Disclaimer: The information contained in this section may have been updated after the patient was seen, as this information can be updated by other users. Medical History (Updated 10/27/24 @ 01:00 by Tylor Mendes MD) Hypertension Cataracts, bilateral Surgical History (Updated 10/27/24 @ 00:59 by Mana Maldonado RN) Hx of tonsillectomy History of open heart surgery Social History Smoking Status: Never smoker alcohol intake: never substance use type: denies use current occupational status: retired Travel in the last 8 weeks?: None household members: spouse housing: house Other Medical History Have you received the Pneumonia Vaccine: No Review of Systems Review of Systems Review of systems (narrative): 14 point review of systems performed, pertinent positives and negatives as per HPI Meds Home Medications and Allergies Home Medications ?Medication ?Instructions ?Recorded ?Confirmed ?Type aspirin 81 mg chewable tablet 81 mg PO DAILY 08/28/21 10/27/24 History coenzyme Q10 100 mg capsule 100 mg PO DAILY 08/28/21 10/27/24 History (CoQ-10) irbesartan 150 mg tablet 150 mg PO DAILY 08/28/21 10/27/24 History ipratropium bromide 21 mcg (0.03 2 spray intranasal BID 10/27/24 10/27/24 History %) nasal spray rosuvastatin 20 mg tablet 20 mg PO DAILY 10/27/24 10/27/24 History trazodone 50 mg tablet 50 mg PO DAILY 10/27/24 10/27/24 History New Prescriptions to Start Prescriptions: Allergies Allergy/AdvReac Type Severity Reaction Status Date / Time No Known Allergies Allergy Verified 09/07/24 13:30 Exam Data for Last 24 hours Vital signs and Labs for Last 24 Hours: Temp Pulse Resp BP Pulse Ox O2 Del Method 97.8 F 78 18 222/104 H 96 Room Air 10/26/24 20:38 10/26/24 22:01 10/26/24 20:38 10/26/24 22:01 10/26/24 22:01 10/26/24 22:01 Laboratory Results - last 24 hr 10/26/24 20:41: WBC 10.8, RBC 5.14, Hgb 15.3, Hct 44.5, MCV 86.6, MCH 29.8, MCHC 34.4, RDW 14.0, Plt Count 219, MPV 9.4, Neut % (Auto) 57.1, Lymph % (Auto) 31.9, [place] % (Auto) 9.5 H, Eos % (Auto) 0.6, Baso % (Auto) 0.4, Neut # (Auto) 6.2, Lymph # (Auto) 3.5, [place] # (Auto) 1.0, Eos # (Auto) 0.1, Baso # (Auto) 0.0, PT 10.9, INR 0.98, APTT 24.8, Sodium 138, Potassium 3.9, Chloride 104, Carbon Dioxide 26, Anion Gap 11.9, BUN 24 H, Creatinine 1.40 H, Estimated Creat Clear 46, Estimated GFR 48 L, Est GFR ( Amer) 59, Glucose 129 H, Calcium 10.0, Magnesium 1.9, Total Bilirubin 0.8, AST 33, ALT 26, Alkaline Phosphatase 122, Troponin I < 0.01, Total Protein 8.0, Albumin 4.8, Globulin 3.2, Albumin/Globulin Ratio 1.5, TSH 2.48, Thyroxine (T4) 9.4 I & O for Last 24 hours: Intake & Output 10/23/24 10/24/24 10/25/24 10/26/24 23:59 23:59 23:59 23:59 Weight 80.739 kg Constitutional Constitutional: no acute distress, average body habitus and cooperative *Routine HEENT Exam Head: Present normocephalic Eye: Present EOMI and PERRL ENT: Present mucous membranes moist *Routine Neck Exam Neck: Present supple; Absent lymphadenopathy Comments: Lipoma posterior neck at cervical and thoracic junction. Routine Chest/Breast/Axilla Exam Comments: Well-healed midline scar *Routine Respiratory Exam Respiratory: Present CTA bilaterally; Absent respiratory distress, rhonchi, stridor, wheezes or crackles *Routine Cardiovascular Exam Cardiovascular: Present RRR *Routine Abdominal Exam Abdominal: Present soft and normoactive bowel sounds; Absent tenderness *Routine Rectal Exam Rectal:: deferred *Routine Genitalia Exam Genitalia:: deferred *Routine Extremities Exam Extremities: Present pulses intact; Absent cyanosis, clubbing or edema Routine Back/Spine/Pelvis Exam Back image:  1. Linear bruise approximately 4 cm long and 1/2 cm wide, suspect from trauma from his fall. Skin intact *Routine Skin Exam Skin: Present intact, warm and ecchymosis (Upper back just left of midline); Absent rash *Routine Neurological Exam Neurological: Present alert, oriented X3, CN II-XII intact and moving all extremities; Absent altered mental status Assessment and Plan *Assessment and plan (1) Syncope and collapse: Status: Acute Category: Medical Code(s): R55 - Syncope and collapse (2) Hyperlipidemia: Status: Chronic Category: Medical Code(s): E78.5 - Hyperlipidemia, unspecified (3) Hypertension: Status: Chronic Qualifiers: Hypertension type: primary hypertension Qualified Code(s): I10 - Essential (primary) hypertension Category: Medical Code(s): I10 - Essential (primary) hypertension (4) Status post aorto-coronary artery bypass graft: Status: Chronic Category: Surgical Code(s): Z95.1 - Presence of aortocoronary bypass graft Plan 84-year-old male status post CABG with history of CAD, hypertension, hyperlipidemia. Presents with syncopal events. Workup in the ER relatively unremarkable. Patient found to have elevated blood pressure. Given the recurrent nature of his events, I had interactive discussion with the ER provider who requested admission for further workup and monitoring overnight and evaluation by cardiology in the morning. I decided to admit for monitoring on telemetry and cardiology consult. Blood pressure elevated on admission with systolics 160-180. Normally takes his blood pressure meds at night. Will administer his dose before bed this evening. Patient denies any chest pain or active symptoms. Appears at baseline level of function. Monitoring on telemetry. Problems addressed as follows: Syncope CAD History of CABG Hyperlipidemia Hypertension CKD 3a -Patient having recurrent episodes of syncope with loss of consciousness. Some appear to occur when he changes position or stands. Unclear the exact duration with which they have been recurring. Patient seems to be focused on episodes the past week however there is an ER note from 11/2021 that reports similar presentation and episodes. Differential includes neurogenic, cardiogenic, hypovolemic episodes. - Will monitor on telemetry. Cardiology consulted to evaluate in the morning. Echo ordered for the morning. - In light of his elevated blood pressure, we will administer his evening dose of irbesartan. Received 75 mg prior to leaving the ER, will administer an additional 75 mg this evening. - May need further adjustment to blood pressure medication if these episodes are related to hypertension. - Repeat CBC, CMP, magnesium ordered for the morning - Labs relatively unremarkable with white count of 10.8, hemoglobin 15, kidney function with BUN 24, creatinine 1.4 (consistent with CKD 3a). Glucose normal at 129. Potassium normal at 3.9 with magnesium 1.9. Troponin unremarkable at 0.01. - Per my review of imaging, patient has no acute intracranial abnormality on CT of his head - Resume home aspirin 81 mg daily - Resume Crestor 20 mg nightly Insomnia: Resume trazodone 50 mg nightly as needed Full code Heparin subcu 3 times daily 5000 units Regular diet
[2024-10-26 23:24] LABS: WBC,Urine Occasional #/hpf (0-3)
[2024-10-26] MEDS: IRBESARTAN 75MG TABLET 75 MG PO (23:46)
--- NOTE | 2024-10-26 23:54 | PC.NURSE ---
Report called to [facility] for medsurg
[2024-10-27 00:30] VITALS: PULSE 80
[2024-10-27 00:35] VITALS: BP 180/102; PULSE 71; RESP 18; TEMP 36.6; O2SAT 97; BMI 25.1
[2024-10-27 01:02] LABS: Troponin I 0.02 ng/ml (0.00-0.034)
[2024-10-27] MEDS: IRBESARTAN 75MG TABLET 75 MG PO (01:08)
[2024-10-27] MEDS: TRAZODONE 50MG TABLET 50 MG PO (01:08)
[2024-10-27 03:27] LABS: Troponin I 0.02 ng/ml (0.00-0.034)
[2024-10-27 04:00] VITALS: BP 155/71; PULSE 60; RESP 16; TEMP 36.5; O2SAT 97; BMI 25.0
--- NOTE | 2024-10-27 06:00 | CA_ITS ---
APPROVED REPORT EXAM: Comprehensive 2D, Doppler, and color-flow Echocardiogram Carousel Operator: AMIRA Khalil, RVS Ht: 5 ft 11 in Wt: 178lbs BSA: 2.01 BP: 222/104 mmHg Indications: HTN, Syncope, CAD-CABG, HLD, Murmurs 2D Dimensions Left Atrium 2.98 cm M: 3.0 - 4.0 M-Mode Dimensions RVDd 1.90 cm (0.9-2.6) LA Diam 4.46 cm (1.9-4.0) LVDd 4.63 cm (3.5-5.7) LVDs 3.00 cm (3.5-5.7) IVSd 1.25 cm (0.6-1.1) PWd 1.21 cm (0.6-1.1) EF (Teich) 64.60% EPSs 0.99 cm FS 35.20% EDV (Teich) 98.80 mL ESV (Teich) 35.00 mL LV Diastology E Decel Time 207 (160-240 msec) E/A Ratio 1.19 MED A' 15.20 cm/s LAT A' 11.90 cm/s Aortic Valve ANH Index 1.71 cm2/m2 AoV Peak Honorio. 113.0 (50-130 cm/s) AI PHT 427.00 ms AO Peak GR. 5.10 mmHg AO Mean GR. 2.60 (<5 mmHg) AO VTI 24.8 (18-25 cm) ANH (VTI) 3.52 (2.5-4.5 cm2) Mitral Valve MV A Velocity 75.0 (40-130 cm/s) E/A Ratio 1.19 Pulmonary Valve IL End VMAX 128.0 cm/s Tricuspid Valve TR P. Velocity 225.00 cm/s RAP Estimate 10.00 mmHg RVSP 30.30 mmHg Left Ventricle The left ventricle is normal size. Left ventricular systolic function is normal. The left ventricular ejection fraction is within the normal range. Proximal septal thickening is present. There is normal LV segmental wall motion. The left ventricular diastolic function is normal. LVEF is 55% Right Ventricle The right ventricle is mildly dilated. The right ventricular systolic function is normal. Atria The left atrium size is normal. The right atrium size is normal. There is no color Doppler evidence of interatrial shunt. Aortic Valve The aortic valve is mildly thickened. There is no hemodynamically significant aortic valvular stenosis. Trace aortic regurgitation is present. Mitral Valve The mitral valve is normal in structure. No evidence of mitral valve stenosis. Mild mitral regurgitation is present. Tricuspid Valve The tricuspid valve leaflets are thin and pliable. Mild tricuspid regurgitation. RVSP is 20-25 mmHg. Pulmonic Valve The pulmonary valve is grossly normal in structure. Mild pulmonic valve regurgitation is present. Great Vessels The aortic root is normal in size. IVC is normal in size and collapses >50% with inspiration. Pericardium There is no pericardial effusion. Other Information Study Quality: Fair Conclusion Normal biventricular systolic function. Mild RV dilation. Mild MR, mild TR, mild IL. Electronically signed by : Nieves Samano MD 10/27/2024 12:17:57
--- NOTE | 2024-10-27 06:08 | PC.NURSE ---
New Admit. v/s, ox4. Bed alarm set per pull alarm on pts gown for syncopal episodes. Plan of care ongoing.
[2024-10-27 06:24] LABS: Hematocrit 43.1 % (42.0-52.0); Hemoglobin 14.6 g/dL (14.1-18.0); Immature Granulocytes % 0.4 %; Mean Corpuscular HGB Conc 33.9 g/dL (31.8-35.4); Mean Corpuscular Hemoglobin 29.1 pg (27.0-31.2); Mean Corpuscular Volume 86.0 fl (80-94); Nucleated Red Blood Cells % 0 %; Platelet Count 201 K/mm3 (142-424); Red Blood Count 5.01 M/mm3 (4.60-6.20); Red Cell Distribution Width-SD 43.8 fL; White Blood Count 11.3 K/mm3 (4.8-10.8)
[2024-10-27 06:28] LABS: Albumin Level 3.7 g/dl (3.5-5.0); Chloride 105 mmol/L (98-107); Potassium 3.7 mmoL/L (3.5-5.1); Sodium 134 mmol/L (136-145)
[2024-10-27 06:31] LABS: Alanine Aminotransferase 23 U/L (12-78); Albumin/Globulin Ratio 1.1 (1.1-1.8); Alkaline Phosphatase 106 U/L (38-126); Anion Gap 7.7 mEq/L (5-15); Aspartate Amino Transferase 28 U/L (17-59); Bilirubin,Total 1.0 mg/dl (0.2-1.3); Blood Urea Nitrogen 19 mg/dl (9-20); Calcium 9.6 mg/dl (8.4-10.2); Carbon Dioxide 25 mmol/L (22.0-30.0); Creatinine Clearance Estimated 54 mL/min (50-200); Creatinine,Serum 1.20 mg/dl (0.66-1.25); Estimated Glomerular Filt Rate 58 ml/min (>60); GFR (African American) 70 ML/MIN (>60); Globulin 3.5 g/dL (1.3-3.2); Glucose 108 mg/dl (74-100); Magnesium 2.0 mg/dl (1.6-2.3); Total Protein,Serum 7.2 g/dl (6.3-8.2)
[2024-10-27 08:00] VITALS: BP 165/80; PULSE 71; RESP 16; TEMP 36.5; O2SAT 95
--- NOTE | 2024-10-27 08:14 | HMH.PHAINT1 ---
Pharmacy Intervention Comments: MEDICATION RECONCILIATION COMPLETED ON PATIENT USING EXTERNAL FILL HISTORY FROM PHARMACY. -MAYO VENCES, ESTEPHANIAD
--- NOTE | 2024-10-27 09:07 | EXP.CARD.CON ---
History of Present Illness History of Present Illness Consult date: 10/27/24 Requesting physician: Tylor Mendes Chief complaint: syncope History of present illness: Hospitalist note:Mr. Ruiz is an 84-year-old male with history of CAD status post CABG 12 years ago, CKD, hyperlipidemia, hypertension, BPH, sleep disorder. He presented to the ER with family due to an episode of syncope in his kitchen this evening. Family reports he lost consciousness. They did not witness him hit his head. States he had a similar episode yesterday when working on his tractor. It was unwitnessed and he states he did not tell anyone. States that he has had multiple episodes over the past 3 days but does not recall having any prior to this. Denies any prodrome. No dizziness prior to the episode. No change in vision, palpitations, ringing in his ears, nausea or vomiting. Does not appear postictal. States he regains consciousness very quickly after the episodes. No loss of bladder or bowel. Denies biting his tongue. Episode witnessed by family today with reported loss of consciousness for just a few seconds and no seizure-like activity noted. States he has been eating and drinking fairly normally. Takes his medications at night. Is on a baby aspirin. Follows with his cardiology team in [facility] once a year. Workup in the ER with findings of normal hemoglobin at 15. White count normal at 10. Kidney function appears to be at baseline with BUN 24, creatinine 1.4. Electrolytes essentially normal. Troponin negative. Imaging relatively unremarkable. Medicine consulted for observation overnight due to syncopal events that are recurrent and further workup in the morning On evaluation, patient has a somewhat odd affect. Does not recall previously having episodes prior to the events the past 3 days. When asked about possible episodes several years ago in 2021, he states he is unaware of any. Of note, his chart shows an ER visit for similar presentation with mention of having similar episodes for quite some time . On room air, alert and oriented x 3. In no acute distress. Cardiology note: Anoop Ruiz is a 84-year-old white male with past medical history of coronary artery disease status post CABG 12 years ago, chronic kidney disease, hyperlipidemia, hypertension, BPH and a sleep disorder who presented to emergency department last night with complaints of multiple episodes of syncope over the month. Patient thinks he has passed out 3-4 times.. Often cannot tell when episodes are about to happen he just wakes up on the floor. Patient denies chest pain or shortness of breath. He reports other than passing out he feels good most days. EKG upon presentation to ER showed sinus rhythm at a rate of 70 with a possible left atrial enlargement and incomplete right bundle branch block. Labs were as follow: WBC 10.8, hemoglobin 15.3, sodium 138, potassium 3.9, BUN 24 with a creatinine of 1.4 which appears to be patient's baseline, serial troponins negative, and TSH normal. Patient underwent chest CTA, head CT, head CTA, neck CTA and cervical spine CT all of which were negative for acute process. Of note patient has been hypertensive since admission. This morning he is resting comfortably in bed and denies any symptoms of chest pain shortness of breath or near syncope. He reports he would like to go home today. Echocardiogram is pending. [facility] Disclaimer: The information contained in this section may have been updated after the patient was seen, as this information can be updated by other users. Medical History (Updated 10/27/24 @ 01:00 by Tylor Mendes MD) Hypertension Cataracts, bilateral Surgical History (Updated 10/27/24 @ 00:59 by Mana Maldonado RN) Hx of tonsillectomy History of open heart surgery Social History (Updated 10/27/24 @ 00:59 by Mana Maldonado RN) Smoking Status: Never smoker alcohol intake: never substance use type: denies use current occupational status: retired Travel in the last 8 weeks?: None household members: spouse housing: house Have you lived/traveled outside US in past 30 days?: No Contact w/someone who lives/traveled outside US past 30 days?: No Exposure to someone with infectious disease in past 14 days?: No Do you have a fever (greater than 100.4 F or 38 C)?: No Have you tested positive for COVID-19?: No Exposed to someone with COVID-19 in past 14 days?: No Do you have a sore throat?: No Do you have a cough?: No Do you have any weakness?: No Are you experiencing any nausea/vomitting?: No Do you have any diarrhea?: No Are you experiencing any unusual bleeding?: No Do you have any muscle aches/pain?: No Do you have any abdominal pain?: No Are you experiencing loss of taste or smell?: No Review of Systems Review of Systems Review of systems:: pertinent systems reviewed and negative unless documented below Constitutional Comments: Syncope Exam Data for Last 24 hours Vital signs and Labs for Last 24 Hours: Temp Pulse Resp BP Pulse Ox O2 Del Method 97.7 F 71 16 165/80 H 95 Room Air 10/27/24 08:00 10/27/24 08:00 10/27/24 08:00 10/27/24 08:00 10/27/24 08:00 10/27/24 08:00 Laboratory Results - last 24 hr 10/26/24 20:41: WBC 10.8, RBC 5.14, Hgb 15.3, Hct 44.5, MCV 86.6, MCH 29.8, MCHC 34.4, RDW 14.0, Plt Count 219, MPV 9.4, Neut % (Auto) 57.1, Lymph % (Auto) 31.9, [place] % (Auto) 9.5 H, Eos % (Auto) 0.6, Baso % (Auto) 0.4, Neut # (Auto) 6.2, Lymph # (Auto) 3.5, [place] # (Auto) 1.0, Eos # (Auto) 0.1, Baso # (Auto) 0.0, PT 10.9, INR 0.98, APTT 24.8, Sodium 138, Potassium 3.9, Chloride 104, Carbon Dioxide 26, Anion Gap 11.9, BUN 24 H, Creatinine 1.40 H, Estimated Creat Clear 46, Estimated GFR 48 L, Est GFR ( Amer) 59, Glucose 129 H, Calcium 10.0, Magnesium 1.9, Total Bilirubin 0.8, AST 33, ALT 26, Alkaline Phosphatase 122, Troponin I < 0.01, Total Protein 8.0, Albumin 4.8, Globulin 3.2, Albumin/Globulin Ratio 1.5, TSH 2.48, Thyroxine (T4) 9.4 10/26/24 22:45: Urine Color Yellow, Urine Appearance Clear, Urine pH 6.0, Ur Specific [place] <= 1.005, Urine Protein Negative, Urine Glucose (UA) Negative, Urine Ketones Negative, Urine Blood Negative, Urine Nitrate Negative, Urine Bilirubin Negative, Urine Urobilinogen 0.2, Ur Leukocyte Esterase Negative, Urine WBC Occasional 10/27/24 00:33: Troponin I 0.02 10/27/24 02:57: Troponin I 0.02 10/27/24 05:45: WBC 11.3 H, RBC 5.01, Hgb 14.6, Hct 43.1, MCV 86.0, MCH 29.1, MCHC 33.9, RDW 13.9, Plt Count 201, MPV 9.2, Neut % (Auto) 67.7, Lymph % (Auto) 20.7, [place] % (Auto) 10.0 H, Eos % (Auto) 0.8, Baso % (Auto) 0.4, Neut # (Auto) 7.7, Lymph # (Auto) 2.3, [place] # (Auto) 1.1 H, Eos # (Auto) 0.1, Baso # (Auto) 0.1, Sodium 134 L, Potassium 3.7, Chloride 105, Carbon Dioxide 25, Anion Gap 7.7, BUN 19, Creatinine 1.20, Estimated Creat Clear 54, Estimated GFR 58 L, Est GFR ( Amer) 70, Glucose 108 H, Calcium 9.6, Magnesium 2.0, Total Bilirubin 1.0, AST 28, ALT 23, Alkaline Phosphatase 106, Total Protein 7.2, Albumin 3.7 D, Globulin 3.5 H, Albumin/Globulin Ratio 1.1 I & O for Last 24 hours: Intake & Output 10/24/24 10/25/24 10/26/24 10/27/24 23:59 23:59 23:59 23:59 Intake Total 360 / 360 Output Total 400 / 400 Balance -40 / -40 Weight 178 lb 179 lb Constitutional Constitutional: no acute distress *Routine Respiratory Exam Respiratory: Present CTA bilaterally and symmetric chest movement *Routine Cardiovascular Exam Cardiovascular: Present RRR, Normal S1 and Normal S2 *Routine Abdominal Exam Abdominal: Present soft and normoactive bowel sounds; Absent tenderness *Routine Extremities Exam Extremities: Present full ROM and normal capillary refill; Absent edema *Routine Skin Exam Skin: Present intact, dry and warm Detailed Neck Exam: Thyroids Thyroid: Absent bruit Meds Home Medications and Allergies Home Medications ?Medication ?Instructions ?Recorded ?Confirmed ?Type aspirin 81 mg chewable tablet 81 mg PO DAILY 08/28/21 10/27/24 History coenzyme Q10 100 mg capsule 100 mg PO DAILY 08/28/21 10/27/24 History (CoQ-10) ipratropium bromide 21 mcg (0.03 2 spray intranasal BID 10/27/24 10/27/24 History %) nasal spray irbesartan 300 mg tablet 300 mg PO HS 10/27/24 10/27/24 History rosuvastatin 20 mg tablet 20 mg PO HS 10/27/24 10/27/24 History trazodone 50 mg tablet 50 mg PO HSP PRN Insomnia 10/27/24 10/27/24 History New Prescriptions to Start Prescriptions: Allergies Allergy/AdvReac Type Severity Reaction Status Date / Time No Known Allergies Allergy Verified 09/07/24 13:30 Assessment and Plan *Assessment and plan (1) High blood pressure: Status: Acute Category: Medical Code(s): I10 - Essential (primary) hypertension (2) Syncope and collapse: Status: Acute Category: Medical Code(s): R55 - Syncope and collapse (3) Chronic kidney disease: Status: Chronic Category: Medical Code(s): N18.9 - Chronic kidney disease, unspecified (4) Atherosclerotic heart disease of [place] coronary artery without angina pectoris: Status: Chronic Category: Medical Code(s): I25.10 - Atherosclerotic heart disease of [place] coronary artery without angina pectoris Plan Syncopal episodes Echo pending No bradycardia noted during admission Recommend 2-week event monitor at discharge home No driving until cleared by cardiology History of coronary artery disease History of CABG EKG negative for STEMI Serial troponins negative Continue aspirin and statin Chronic kidney disease Creatinine on admission 1.4 which appears to be at baseline Hypertension Continue irbesartan 150 mg p.o. daily if blood pressure remains elevated can increase to a full 300 mg daily CV summary 10/27/2024: Echocardiogram is pending. If echo is unremarkable patient can be discharged home in a 2-week event monitor with follow-up in cardiology clinic next week. Patient should be advised no driving until cleared by cardiology.
--- NOTE | 2024-10-27 09:52 | PC.NURSE ---
Patient refused to have anyone walk him to the bathroom this morning.
[2024-10-27 12:00] VITALS: BP 152/92; PULSE 63; RESP 16; TEMP 36.9; O2SAT 95
--- NOTE | 2024-10-27 19:24 | EXP.DC.SUM ---
General Admission date:: 10/26/24 Discharge date: 10/27/24 HPI HPI HPI: Mr. Ruiz is an 84-year-old male with history of CAD status post CABG 12 years ago, CKD, hyperlipidemia, hypertension, BPH, sleep disorder. He presented to the ER with family due to an episode of syncope in his kitchen this evening. Family reports he lost consciousness. They did not witness him hit his head. States he had a similar episode yesterday when working on his tractor. It was unwitnessed and he states he did not tell anyone. States that he has had multiple episodes over the past 3 days but does not recall having any prior to this. Denies any prodrome. No dizziness prior to the episode. No change in vision, palpitations, ringing in his ears, nausea or vomiting. Does not appear postictal. States he regains consciousness very quickly after the episodes. No loss of bladder or bowel. Denies biting his tongue. Episode witnessed by family today with reported loss of consciousness for just a few seconds and no seizure-like activity noted. States he has been eating and drinking fairly normally. Takes his medications at night. Is on a baby aspirin. Follows with his cardiology team in [facility] once a year. Workup in the ER with findings of normal hemoglobin at 15. White count normal at 10. Kidney function appears to be at baseline with BUN 24, creatinine 1.4. Electrolytes essentially normal. Troponin negative. Imaging relatively unremarkable. Medicine consulted for observation overnight due to syncopal events that are recurrent and further workup in the morning On evaluation, patient has a somewhat odd affect. Does not recall previously having episodes prior to the events the past 3 days. When asked about possible episodes several years ago in 2021, he states he is unaware of any. Of note, his chart shows an ER visit for similar presentation with mention of having similar episodes for quite some time . On room air, alert and oriented x 3. In no acute distress. Hospital Course Hospital Course Hospital Course: 84-year-old male status post CABG with history of CAD, hypertension, hyperlipidemia. Presents with syncopal events. Workup in the ER relatively unremarkable. Patient found to have elevated blood pressure. Given the recurrent nature of his events, I had interactive discussion with the ER provider who requested admission for further workup and monitoring overnight and evaluation by cardiology in the morning. I decided to admit for monitoring on telemetry and cardiology consult. Blood pressure elevated on admission with systolics 160-180. Normally takes his blood pressure meds at night. Will administer his dose before bed this evening. Patient denies any chest pain or active symptoms. Appears at baseline level of function. Monitoring on telemetry. Problems addressed as follows: Syncope CAD History of CABG Hyperlipidemia Hypertension CKD 3a Echocardiogram is unremarkable for acute findings, discharged home in a 2-week event monitor with follow-up in cardiology clinic next week. Patient should be advised no driving until cleared by cardiology. patient and family inofrmed Exam Data for Last 24 hours Vital signs and Labs for Last 24 Hours: Temp Pulse Resp BP Pulse Ox O2 Del Method 98.4 F 63 16 152/92 H 95 Room Air 10/27/24 12:00 10/27/24 12:00 10/27/24 12:00 10/27/24 12:00 10/27/24 12:00 10/27/24 13:00 Laboratory Results - last 24 hr 10/26/24 20:41: WBC 10.8, RBC 5.14, Hgb 15.3, Hct 44.5, MCV 86.6, MCH 29.8, MCHC 34.4, RDW 14.0, Plt Count 219, MPV 9.4, Neut % (Auto) 57.1, Lymph % (Auto) 31.9, [place] % (Auto) 9.5 H, Eos % (Auto) 0.6, Baso % (Auto) 0.4, Neut # (Auto) 6.2, Lymph # (Auto) 3.5, [place] # (Auto) 1.0, Eos # (Auto) 0.1, Baso # (Auto) 0.0, PT 10.9, INR 0.98, APTT 24.8, Sodium 138, Potassium 3.9, Chloride 104, Carbon Dioxide 26, Anion Gap 11.9, BUN 24 H, Creatinine 1.40 H, Estimated Creat Clear 46, Estimated GFR 48 L, Est GFR ( Amer) 59, Glucose 129 H, Calcium 10.0, Magnesium 1.9, Total Bilirubin 0.8, AST 33, ALT 26, Alkaline Phosphatase 122, Troponin I < 0.01, Total Protein 8.0, Albumin 4.8, Globulin 3.2, Albumin/Globulin Ratio 1.5, TSH 2.48, Thyroxine (T4) 9.4 10/26/24 22:45: Urine Color Yellow, Urine Appearance Clear, Urine pH 6.0, Ur Specific [place] <= 1.005, Urine Protein Negative, Urine Glucose (UA) Negative, Urine Ketones Negative, Urine Blood Negative, Urine Nitrate Negative, Urine Bilirubin Negative, Urine Urobilinogen 0.2, Ur Leukocyte Esterase Negative, Urine WBC Occasional 10/27/24 00:33: Troponin I 0.02 10/27/24 02:57: Troponin I 0.02 10/27/24 05:45: WBC 11.3 H, RBC 5.01, Hgb 14.6, Hct 43.1, MCV 86.0, MCH 29.1, MCHC 33.9, RDW 13.9, Plt Count 201, MPV 9.2, Neut % (Auto) 67.7, Lymph % (Auto) 20.7, [place] % (Auto) 10.0 H, Eos % (Auto) 0.8, Baso % (Auto) 0.4, Neut # (Auto) 7.7, Lymph # (Auto) 2.3, [place] # (Auto) 1.1 H, Eos # (Auto) 0.1, Baso # (Auto) 0.1, Sodium 134 L, Potassium 3.7, Chloride 105, Carbon Dioxide 25, Anion Gap 7.7, BUN 19, Creatinine 1.20, Estimated Creat Clear 54, Estimated GFR 58 L, Est GFR ( Amer) 70, Glucose 108 H, Calcium 9.6, Magnesium 2.0, Total Bilirubin 1.0, AST 28, ALT 23, Alkaline Phosphatase 106, Total Protein 7.2, Albumin 3.7 D, Globulin 3.5 H, Albumin/Globulin Ratio 1.1 I & O for Last 24 hours: Intake & Output 10/24/24 10/25/24 10/26/24 10/27/24 23:59 23:59 23:59 23:59 Intake Total 600 / 600 Output Total 400 / 400 Balance 200 / 200 Weight 80.739 kg 81.193 kg Results Data Completed and Pending Labs on day of discharge: Labs from last 24 hours 10/27/24 10/27/24 10/27/24 05:45 02:57 00:33 WBC 11.3 H RBC 5.01 Hgb 14.6 Hct 43.1 MCV 86.0 MCH 29.1 MCHC 33.9 RDW 13.9 Plt Count 201 MPV 9.2 Neut % (Auto) 67.7 Lymph % (Auto) 20.7 [place] % (Auto) 10.0 H Eos % (Auto) 0.8 Baso % (Auto) 0.4 Neut # (Auto) 7.7 Lymph # (Auto) 2.3 [place] # (Auto) 1.1 H Eos # (Auto) 0.1 Baso # (Auto) 0.1 PT INR APTT Sodium 134 L Potassium 3.7 Chloride 105 Carbon Dioxide 25 Anion Gap 7.7 BUN 19 Creatinine 1.20 Estimated Creat Clear 54 Estimated GFR 58 L Est GFR ( Amer) 70 Glucose 108 H Calcium 9.6 Magnesium 2.0 Total Bilirubin 1.0 AST 28 ALT 23 Alkaline Phosphatase 106 Troponin I 0.02 0.02 Total Protein 7.2 Albumin 3.7 D Globulin 3.5 H Albumin/Globulin Ratio 1.1 TSH Thyroxine (T4) Urine Color Urine Appearance Urine pH Ur Specific [place] Urine Protein Urine Glucose (UA) Urine Ketones Urine Blood Urine Nitrate Urine Bilirubin Urine Urobilinogen Ur Leukocyte Esterase Urine WBC 10/26/24 10/26/24 22:45 20:41 WBC 10.8 RBC 5.14 Hgb 15.3 Hct 44.5 MCV 86.6 MCH 29.8 MCHC 34.4 RDW 14.0 Plt Count 219 MPV 9.4 Neut % (Auto) 57.1 Lymph % (Auto) 31.9 [place] % (Auto) 9.5 H Eos % (Auto) 0.6 Baso % (Auto) 0.4 Neut # (Auto) 6.2 Lymph # (Auto) 3.5 [place] # (Auto) 1.0 Eos # (Auto) 0.1 Baso # (Auto) 0.0 PT 10.9 INR 0.98 APTT 24.8 Sodium 138 Potassium 3.9 Chloride 104 Carbon Dioxide 26 Anion Gap 11.9 BUN 24 H Creatinine 1.40 H Estimated Creat Clear 46 Estimated GFR 48 L Est GFR ( Amer) 59 Glucose 129 H Calcium 10.0 Magnesium 1.9 Total Bilirubin 0.8 AST 33 ALT 26 Alkaline Phosphatase 122 Troponin I < 0.01 Total Protein 8.0 Albumin 4.8 Globulin 3.2 Albumin/Globulin Ratio 1.5 TSH 2.48 Thyroxine (T4) 9.4 Urine Color Yellow Urine Appearance Clear Urine pH 6.0 Ur Specific [place] <= 1.005 Urine Protein Negative Urine Glucose (UA) Negative Urine Ketones Negative Urine Blood Negative Urine Nitrate Negative Urine Bilirubin Negative Urine Urobilinogen 0.2 Ur Leukocyte Esterase Negative Urine WBC Occasional DS: Diagnosis Discharge Diagnosis (1) High blood pressure: Status: Acute Code(s): I10 - Essential (primary) hypertension (2) Syncope and collapse: Status: Acute Code(s): R55 - Syncope and collapse (3) Chronic kidney disease: Status: Chronic Code(s): N18.9 - Chronic kidney disease, unspecified (4) Atherosclerotic heart disease of [place] coronary artery without angina pectoris: Status: Chronic Code(s): I25.10 - Atherosclerotic heart disease of [place] coronary artery without angina pectoris Meds Home Medications and Allergies Home Medications ?Medication ?Instructions ?Recorded ?Confirmed ?Type aspirin 81 mg chewable tablet 81 mg PO DAILY 08/28/21 10/27/24 History coenzyme Q10 100 mg capsule 100 mg PO DAILY 08/28/21 10/27/24 History (CoQ-10) ipratropium bromide 21 mcg (0.03 2 spray intranasal BID 10/27/24 10/27/24 History %) nasal spray irbesartan 300 mg tablet 300 mg PO HS 10/27/24 10/27/24 History rosuvastatin 20 mg tablet 20 mg PO HS 10/27/24 10/27/24 History trazodone 50 mg tablet 50 mg PO HSP PRN Insomnia 10/27/24 10/27/24 History New Prescriptions to Start Prescriptions: Allergies Allergy/AdvReac Type Severity Reaction Status Date / Time No Known Allergies Allergy Verified 09/07/24 13:30 Discharge Plan Disposition Patient Disposition: Home, Self-Care Condition: Good Follow up Plan Follow up with: Magui Valera APRN [Nurse Practitioner, Cardiology] - 11/02/24 10:30 am Prescriptions/Medication Reconciliation: Continued aspirin 81 mg tablet,chewable 81 mg PO DAILY coenzyme Q10 [CoQ-10] 100 mg capsule 100 mg PO DAILY ipratropium bromide 21 mcg (0.03 %) [place],Non-Aerosol 2 spray INTRANASAL BID Rx Instructions: administer into each nostril trazodone 50 mg tablet 50 mg PO HSP PRN (Reason: Insomnia) rosuvastatin 20 mg tablet 20 mg PO HS irbesartan 300 mg tablet 300 mg PO HS Patient Comments: TAKE 1 TABLET BY MOUTH EVERY NIGHT Problem Reconciliation Problems Reviewed?: Yes Patient Discharge Instructions ACTIVITY: Continue current activity DIET: continue same diet Patient Instructions: DI for Syncope in Adults (Fainting), High Blood Pressure, DI for High Blood Pressure, DI for Pulmonary Nodule Print Language: Pashto Providers Primary Care Provider: Catarino Ireland Admit Provider: Tylor Mendes Attending Provider: Tylor Mendes
--- NOTE | 2024-10-31 10:41 | SW/DCPLANNER ---
Phoned patient x2. Left messages with name and a call back number. Shana Pederson
== END 2024-10-27 14:02 | disposition home or self-care (01) ==
LOC: ER 23:09 → 2ND 10-27 00:46
PROVIDERS: Admitting Provider Internal Medicine Adolescent Medicine; Emergency Provider Emergency Medicine; PCP Internal Medicine; Visit Provider Internal Medicine Adolescent Medicine
DX: I12.9 Hypertensive chronic kidney disease with stage 1 through stage 4 chronic kidney disease, or unspecified chronic kidney disease (principal); R55 Syncope and collapse; N18.31 Chronic kidney disease, stage 3a; E78.5 Hyperlipidemia, unspecified; G47.00 Insomnia, unspecified; M50.323 Other cervical disc degeneration at C6-C7 level; I25.10 Atherosclerotic heart disease of native coronary artery without angina pectoris; M43.22 Fusion of spine, cervical region; R91.8 Other nonspecific abnormal finding of lung field; I70.0 Atherosclerosis of aorta; I45.10 Unspecified right bundle-branch block; Z95.1 Presence of aortocoronary bypass graft; Z79.82 Long term (current) use of aspirin; Z79.899 Other long term (current) drug therapy
CPT/HCPCS: 36415; 70450; 70496; 70498; 71275; 72125; 80053; 81001; 83735; 84436; 84443; 84484; 85025; 85610; 85730; 93005; 93270; 93306; 99285; G0378; Q9967

== ENCOUNTER 2024-11-07 16:01 | Outpatient (CLI) | payer MEDICARE, SELFPAY ==
--- OUTSIDE RECORDS SUMMARY | 2024-11-07 16:03 | XMS_ITS | Clinical Summary ---
Author Organization [facility] Address [address] [place] [address] Phone Care Team Providers Care Supervisor Rework Name Role Phone Unavailable Primary Care Provider [...]
--- OUTSIDE RECORDS SUMMARY | 2024-11-07 16:03 | XMS_ITS | Encounter Summary ---
Author Organization [facility] Address [address] [place] [address] Care Team Providers Care Adzing And Boring Machine Helper Name Role Phone Catarino Ireland MD Primary Care Provider [phone] Asif Marsh MD Unavailable [phone] Ronni Parikh MD Unavailable [phone] Kingston Porter MD Unavailable [phone] Ira Caldera NP Unavailable [phone] Reason for Visit * Reason Comments Medications Refill Encounter Details Date Type Department Care Team (Late st Contact Info) Description 06/28/2023 Refill [facility] Physicians - Heart & Vascular, Nichole Marques [address] [place] [address] [place] [address] Asif Marsh MD [address] [place] [address] Medications Refill Social History Tobacco Use [...] Care Team (Late st Contact Info) Description 11/28/2024 2:20 PM EDT Appointment [facility] Physicians - Heart & Vascular, Nichole Marques 1954 [facility] [address] [place] [address] Ira Caldera NP [address] [place] [address] 02/09/2025 3:00 PM EST Appointment [facility] Physicians - Heart & Vascular, Nichole Marques 1954 [facility] [address] [place], [place] [id number] Gui Ta Jr., MD 1954 [facility] [address] [place], [place] [id number] documented as of this encounter Visit Diagnoses Not on filedocumented in this encounter Care Teams Adzing And Boring Machine Helper Relationship Specialty Start Date End Date Catarino Ireland MD [address] [place], [place] [id number] PCP - General 01/19/13 Asif Marsh MD [address] [place] [address] [address] [place], [place] [address] Cardiology 10/22/20 Ronni Parikh MD 1954 [facility]. [address] [place], [place] [id number] Cardiology 11/12/21 Kingston Porter MD [facility] [address] [place], [place] [address] Cardiology 04/05/22 Ira Caldera NP [address] [place] [address] Nurse Practitioner Nurse Practitioner 05/19/22 documented as of this encounter
--- OUTSIDE RECORDS SUMMARY | 2024-11-07 16:03 | XMS_ITS | Encounter Summary ---
Author Organization [facility] Address [address] [place] [address] Care Team Providers Care Kerfer Machine Operator Name Role Phone Catarino Ireland MD Primary Care Provider [phone] Asif Marsh MD Unavailable [phone] Ronni Parikh MD Unavailable [phone] Kingston Porter MD Unavailable [phone] Ira Caldera NP Unavailable [phone] Encounter Details Date Type Department Care Team (Late st Contact Info) Description 05/06/2016 Lab Results [facility] Physicians - Heart & Vascular, [facility] [address] [place] [address] [address] [place] [phone] Roxanne Salazar, AIDA 2[address] [facility] [address] [place] [address] Social History Tobacco Use Types [...] Description 11/28/2024 2:20 PM EDT Appointment [facility] Physicians - Heart & Vascular, [address] [place] [address] Ira Caldera, LUMBER STICKER [address] [facility] [place], [place] [id number] 02/09/2025 3:00 PM EST Appointment [facility] Physicians - Heart & Vascular, Nichole Marques 1954 [facility] [address] [place], [place] [address] Gui Ta Jr., MD 1954 [facility] [address] [place] [address] documented as of this encounter Procedures Procedure Name Priority Date/Time Associated Diagnosis Comments LIPID PROFILE Routine 05/06/2016 documented in this encounter Results * LIPID PROFILE (05/06/2016) Cholesterol 141 mg/dL [facility] LDL Calculated 51 mg/dL [facility] E XTERNAL [facility] HDL 57 [facility] PUDDLER PILE DRIVING [facility] Triglycerides 166 mg/dL [facility] TER[facility] AST 11 U/L [facility] ALT 29 U/L [facility] Plasma 05/06/2016 us Historical Provider CHEMISTRY ORDERABLES Final R esult [facility] [address] documented in this encounter Visit Diagnoses Not on filedocumented in this encounter Care Teams Kerfer Machine Operator Relationship Specialty Start Date End Date Catarino Ireland MD [address] [place] [address] PCP - General 01/19/13 Asif Marsh MD 3 [facility]. [address] [place] [address] Cardiology 10/22/20 Ronni Parikh MD [address] [facility] [address] Cardiology 11/12/21 Kingston Porter MD [address] [place] [address] [address] [place] [address] Cardiology 04/05/22 Ira Caldera NP 7545 [facility] [address] [place], [place] [address] Nurse Practitioner Nurse Practitioner 05/19/22 documented as of this encounter
--- OUTSIDE RECORDS SUMMARY | 2024-11-07 16:03 | XMS_ITS | Encounter Summary ---
Author Organization [facility] Address [address] [place] [address] Care Team Providers Care Surveyor Instrument Assistant Name Role Phone Catarino Ireland MD Primary Care Provider [phone] Asif Marsh MD Unavailable [phone] Ronni Parikh MD Unavailable [phone] Kingston Porter MD Unavailable [phone] Ira Caldera NP Unavailable [phone] Encounter Details Date Type Department Care Team (Late st Contact Info) Description 01/23/2013 Abstract [facility] Physicians - Heart & Vascular, [facility] [address] [place] [address] [address] [place] [phone] Kingston Porter MD 2[address] [facility] [address] [place] [address] Social History Tobacco Use Types [...] Description 11/28/2024 2:20 PM EDT Appointment [facility] Physicians - Heart & Vascular, [address] [place] [address] Ira Caldera NP [address] [place] [address] 02/09/2025 3:00 PM EST Appointment [facility] Physicians - Heart & Vascular, Nichole Marques 1954 [facility] [address] [place], [place] [address] Gui Ta Jr., MD 1954 [facility] [address] [place], [place] [id number] documented as of this encounter Visit Diagnoses Not on filedocumented in this encounter Care Teams Surveyor Instrument Assistant Relationship Specialty Start Date End Date Catarino Ireland MD [address] [place] [id number] PCP - General 01/19/13 Asif Marsh MD 3 [facility]. [address] [place] [address] Cardiology 10/22/20 Ronni Parkih MD 1954 [facility]. [address] [place], [place] [id number] Cardiology 11/12/21 Kingston Porter MD 2123 [facility] [address] [place] [address] Cardiology 04/05/22 Ira Caldera NP [address] [place] [address] Nurse Practitioner Nurse Practitioner 05/19/22 documented as of this encounter
--- OUTSIDE RECORDS SUMMARY | 2024-11-07 16:03 | XMS_ITS | Clinical Summary ---
Author Organization [facility] Address [address] [place] [address] Care Team Providers Care Experimental Outboard Motors Mechanic Name Role Phone Catarino Ireland MD Primary Care Provider [phone] Asif Marsh MD Unavailable [phone] Ronni Parikh MD Unavailable [phone] Kingston Porter MD Unavailable [phone] Ira Caldera NP Unavailable [phone] Allergies No known active allergies Medications [...] x 4 02/01/2013 CAD (coronary artery disease), [place] coronary a rtery 01/19/2013 Abnormal stress test 01/03/2013 Primary hypertension 01/03/2013 Dyslipidemia 01/03/2013 Exertional chest pain 01/03/2013 Diabetes mellitus 01/03/2013 Encounters Date Type Department Care Team Description 10/27/2024 Telephone [facility] [address] [place] [address] Ronni Parikh MD FYI (Syncopal episodes and hospital admission ) from Last 3 Months Family History Medical History Relation Name Comments [...] Description 11/28/2024 2:20 PM EDT Appointment [facility] Physicians - Heart & Vascular, Nichole Marques 1954 [facility] [place] [address] Ira Caldera, PUBLISHING DIRECTOR [address] [place], [place] [address] 02/09/2025 3:00 PM EST Appointment [facility] Physicians - Heart & Vascular, Nichole Marques [address] [facility] [address] [place], [place] [address] Gui Ta Jr., MD 1954 [facility] [address] [place], [place] [address] Health Maintenance Due Date Last Done [...] EXTE RNAL LAB LDL Calculated 33 mg/dL [facility] E XTERNAL LAB HDL 73 TC BOARD DESIGN ENGINEER AL LAB Plasma Historical Provider CHEMISTRY ORDERABLES Final R esult Performing Organization Address [facility]/ZIP Co de Phone Number [facility] [address] * COMPREHENSIVE METABOLIC PANEL (04/17/2015) Glucose 107 CO2 27 mmol/L Creatinine 1.3 mg/dL Potassium 3.6 mmol/L Sodium 142 mmol/L Calcium 9.3 mg/dL BUN 22 Chloride 105 Plasma Historical Provider CHEMISTRY ORDERABLES Final R esult * (ABNORMAL) HGB, A1C (GLYCOHEMOGLOBIN) (01/25/2013 2:15 PM EDT) Hgb A1C 6.0(H) 4.0 - 5.7 % [facility] Comment: Reference Ranges for [...] Kingston Porter MD CHEMISTRY ORDERABLES Final Result Performing Organization Address City/[facility]/ZIP Co de Phone Number [facility] [address] from Last 3 Months or Most Recently Relevant to Health Maintenance Insurance MEDICARE MEDICARE Advance Directives For more information, please contact: [phone] Documents on File Type Date Recorded Patient Palliative Care Physician Expl anation Advance Directives and Livin g [...] 5:13 AM 01/17/2013 4:28 PM Care Teams Experimental Outboard Motors Mechanic Relationship Specialty Start Date End Date Catarino Ireland MD [address] [place] [id number] PCP - General 01/19/13 Asif Marsh MD [address] [place] [address] [address] [place] [address] Cardiology 10/22/20 Ronni Parikh MD 1954 [facility]. [address] [place], [place] [address] Cardiology 11/12/21 Kingston Porter MD [address] [place] [address] [address] [place] [address] Cardiology 04/05/22 Ira Caldera NP 7545 [facility] [place] [address] Nurse Practitioner Nurse Practitioner 05/19/22
--- OUTSIDE RECORDS SUMMARY | 2024-11-07 16:03 | XMS_ITS | Encounter Summary ---
Author Organization The [facility] Address [address] [place] [address] Care Team Providers Care It Manager Name Role Phone Catarino Ireland MD Primary Care Provider [phone] Asif Marsh MD Unavailable [phone] Ronni Parikh MD Unavailable [phone] Kingston Porter MD Unavailable [phone] Ira Caldera NP Unavailable [phone] Encounter Details Date Type Department Care Team (Late st Contact Info) Description 11/11/2021 Abstract The [facility] Physicians - Heart & Vascular, [facility] [address] [place] [address] [place] [address] Maliak Heaton, AIDA [address] [place] [address] Social History Tobacco Use Types [...] Description 11/28/2024 2:20 PM EDT Appointment The [facility] Physicians - Heart & Vascular, Nichole Marques [address] [place] [address] Ira Caldera, BUDGET ACCOUNTANT 75[address] [facility] [place] [address] 02/09/2025 3:00 PM EST Appointment The [facility] Physicians - Heart & Vascular, [address] [place], [place] [address] Gui Ta Jr., MD [address] [facility] [address] [place], [place] [address] documented as of this encounter Procedures Procedure Name Priority Date/Time Associated Diagnosis Comments ABSTRACTED VASCULAR TEST ([facility]) Routine 10/30/2016 EJECTION FRACTION % FROM TEST Routine 01/17/2013 EJECTION FRACTION % FROM TEST Routine 01/17/2013 ABSTRACTED ECHO ([facility]) Routine 01/17/2013 documented in this encounter Results * ABSTRACTED VASCULAR TEST ([facility]) (10/30/2016) Vascular Test Carotid - BICA less than 50% [facility] Historical Provider CARDIAC SERVICES ORDERABLES Final Result Performing Organization Address [facility]/ZIP Co de Phone Number [facility] [address] * EJECTION FRACTION % - MECHANISM (01/17/2013) EF Mechanism Echo TC EXT ERNAL LAB Historical Provider DUMMY Final Result Performing Organization Address [facility]/ZIP Co de Phone Number [facility] [address] * EJECTION FRACTION % FROM TEST (01/17/2013) EF 63.00 % [facility] us Historical Provider DUMMY Final Result Performing Organization Address City/[facility]/ZIP Co de Phone Number [facility] [address] * ABSTRACTED ECHO ([facility]) (01/17/2013) Echo DD1 [facility] us Historical Provider CARDIAC SERVICES ORDERABLES Final Result Performing Organization Address City/[facility]/ZIP Co de Phone Number [facility] [address] documented in this encounter Visit Diagnoses Not on filedocumented in this encounter Care Teams It Manager Relationship Specialty Start Date End Date Catarino Ireland MD [address] [place], [place] [id number] PCP - General 01/19/13 Asif Marsh MD [facility][note 3]3 [facility]. [address] [place] [address] Cardiology 10/22/20 Rnoni Parikh MD 1954 [facility] [place] [address] Cardiology 11/12/21 Kingston Porter MD [facility][note 3]3 [facility] [address] [place] [address] Cardiology 04/05/22 Ira Caldera NP [address] [place] [address] Nurse Practitioner Nurse Practitioner 05/19/22 documented as of this encounter
--- OUTSIDE RECORDS SUMMARY | 2024-11-07 16:03 | XMS_ITS | Encounter Summary ---
Author Organization [facility] Address [address] [place] [address] Care Team Providers Care Steam Train Driver Name Role Phone Catarino Ireland MD Primary Care Provider [phone] Asif Marsh MD Unavailable Ronni Parikh MD Unavailable [phone] Kingston Porter MD Unavailable [phone] Ira Caldera NP Unavailable [phone] Encounter Details Date Type Department Care Team (Late st Contact Info) Description 02/14/2013 Abstract [facility] Physicians - Heart & Vascular, [facility] [address] [place] [address] [address] [place] [phone] Kingston Porter MD 2[address] [facility] [address] [place] [address] Social History Tobacco Use Types [...] Description 11/28/2024 2:20 PM EDT Appointment [facility] Physicians - Heart & Vascular, [address] [place] [address] Ira Caldera, CAGE UNLOADER 75[address] [facility]. [address] [place], [place] [address] 02/09/2025 3:00 PM EST Appointment [facility] Physicians - Heart & Vascular, Mel[place] 1954 [facility] [address] [facility], [place] [address] Gui Ta Jr., MD 1954 [facility] [address] [place], [place] [id number] documented as of this encounter Procedures Procedure Name Priority Date/Time Associated Diagnosis Comments ABSTRACTED CV SURGERY ([facility]) Routine 02/01/2013 documented in this encounter Results * ABSTRACTED CV SURGERY ([facility]) (02/01/2013) CV Surg Test CABG x4 OBREGON to LAD SVG to Dx SVG -OM-PDA us Historical Provider CARDIAC SERVICES ORDERABLES Final Result documented in this encounter Visit Diagnoses Not on filedocumented in this encounter Care Teams Steam Train Driver Relationship Specialty Start Date End Date Catarino Ireland MD [address] [facility] [address] [place] [address] PCP - General 01/19/13 Asif Marsh MD [address] [place] [address] [address] [place], [place] [address] Cardiology 10/22/20 Ronni Parikh MD 1954 [facility] [address] [place], [place] [phone] Cardiology 11/12/21 Kingston Porter MD [facility]3 [facility] [address] [place] [address] Cardiology 04/05/22 Ira Caldera NP [address] [place] [address] Nurse Practitioner Nurse Practitioner 05/19/22 documented as of this encounter
--- OUTSIDE RECORDS SUMMARY | 2024-11-07 16:03 | XMS_ITS | Encounter Summary ---
Author Organization [facility] Address [address] [place] [address] Care Team Providers Care High [employer] Industrial Arts Teacher Name Role Phone Catarino Ireland MD Primary Care Provider [phone] Asif Marsh MD Unavailable [phone] Ronni Parikh MD Unavailable [phone] Kingston Porter MD Unavailable [phone] Ira Caldera NP Unavailable [phone] Reason for Visit * Reason Onset Date Comments FYI 10/27/2024 Syncopal episode s and hospital admission Encounter Details Date Type Department Care Team (Late st Contact Info) Description 10/27/2024 Telephone [facility] Physicians - Heart & Vascular, [place] [address] [facility] [address] [place] [address] Ronni Parikh MD 1954 [facility] [place] [address] FY (Syncopal episodes and hospital admission ) Social History Tobacco Use Types Packs/Day Years [...] on file documented as of this encounter Miscellaneous Notes * Telephone Encounter - Sam Bragg - 10/31/2024 1:29 PM EDT Spoke to Mara. Got pt scheduled with Ira on 11/[address] [facility] since pt is wearing a heart monitor. Mara wanted to wait to be seen until the results came back. * Telephone Encounter - Crys Eric RN - 10/27/2024 11:49 AM EDT Called and LM advising a hospital follow up appt to be set up to discuss everything. Agree with current plan below * Telephone Encounter - Donita Kingsley - 10/27/2024 11:33 AM EDT Pt's , Mara, called in this morning stating that the pt has had 3 syncopal episodes in the last4 days. Last night was the first time the pt had no indication that he was going to fall. Mara states that the first two times the pt had a sign that he was going to go down. [facility] [place], [place]. Mara states that the pt had an ECHO completed at 0630 today before discussing placing a heart monitor on the pt. Mara states that his labs, BP, etc have been stable and in good range while being admitted. Mara states that the next steps, IF the ECHO results are stable they will place the heart monitor and discharge the pt. Mara is wanting to discusswith RN on what Dr. Parikh's recommendations would be at this time. Please advise and call Mara back @[phone] documented in this encounter Plan of Treatment Upcoming Encounters Date Type Department Care Team (Late st Contact Info) Description 11/28/2024 2:20 PM EDT Appointment [facility] Physicians - Heart & Vascular, Paulette Roche 1954 [facility] [place] [address] Ira Caldera NP [address] [place] [address] 02/09/2025 3:00 PM EST Appointment [facility] Physicians - Heart & Vascular, Paulette Roche 1954 [facility] [place] [id number] Gui Ta Jr., MD 1954 [facility] [place] [address] documented as of this encounter Visit Diagnoses Not on filedocumented in this encounter Care Teams High [employer] Industrial Arts Teacher Relationship Specialty Start Date End Date Catarino Ireland MD [address] [place] [id number] PCP - General 01/19/13 Asif Marsh MD [address] [place] [address]. [address] [place] [address] Cardiology 10/22/20 Ronni Parikh MD 1954 [facility]. [address] [place] [phone] Cardiology 11/12/21 Kingston Porter MD [facility] [address] [place] [address] Cardiology 04/05/22 Ira Caldera NP [address] [place] [address] Nurse Practitioner Nurse Practitioner 05/19/22 documented as of this encounter
== END 2024-11-07 23:59 | disposition home or self-care (01) ==
LOC: RAD 16:02
PROVIDERS: PCP Internal Medicine; Visit Provider Internal Medicine
DX: R69 Illness, unspecified (principal)

== ENCOUNTER 2024-11-20 14:45 | Outpatient (CLI) | payer MEDICARE, SELFPAY ==
--- OUTSIDE RECORDS SUMMARY | 2024-11-20 14:48 | XMS_ITS | Clinical Summary ---
Author Organization [facility] Address [address] [place] [address] Care Team Providers Care Presto Log Operator Name Role Phone Catarino Ireland MD Primary Care Provider [phone] Asif Marsh MD Unavailable [phone] Ronni Parikh MD Unavailable [phone] Kingston Porter MD Unavailable [phone] Ira Caldera NP Unavailable [phone] Allergies No known active allergies Medications [...] x 4 02/01/2013 CAD (coronary artery disease), [place] coronary a rtery 01/19/2013 Abnormal stress test 01/03/2013 Primary hypertension 01/03/2013 Dyslipidemia 01/03/2013 Exertional chest pain 01/03/2013 Diabetes mellitus 01/03/2013 Encounters Date Type Department Care Team Description 11/08/2024 Telephone [facility]icians - Heart & Vascular, [place] [address] [facility] [address] [place] [address] Ronni Parikh MD Other (Please fill out fax that was sent by [facility] about MRI) 10/27/2024 Telephone [facility] - Heart & Vascular, [place] [address] [facility] [address] [place] [address] Ronni Parikh MD FYI (Syncopal [...] Description 11/28/2024 2:20 PM EDT Appointment [facility] - Heart & Vascular, Paulette Roche [address] [facility] [address] [place] [address] Ira Caldera, CNC TECHNICIAN [address] [facility] [address] 02/09/2025 3:00 PM EST Appointment [facility] - Heart & Vascular, Paulette Roche [address] [facility] [address] [place] [address] Gui Ta Jr., MD [address] [facility] [address] [place] [address] Health Maintenance Due Date Last Done Comments Diabetes Mellitus Foot Care (Yearly) 1941 Pneumococcal Vaccine: 50+ Ye ars (1 of 1 - PCV) 07/08/1991 Zoster-RZV(Shingrix) (1 of 2) 07/08/1991 Fall Risk Assessment 2006 Diabetes A1c Monitoring 07/26/2013 01/25/2013 RSV Vaccines (1 - 1-dose 75+ series) 2016 Lipid Monitoring 02/05/2021 02/06/2020, , 11/29/2018, Additional history exists COVID-19 Vaccine (4 - 2023-2 5 season) 2023 12/26/2020, 05/23/2020, 05/03/2020 Advance Care Planning 03/29/2024 BMI Counseling 03/29/2024 Depression Screening 03/29/2024 Diabetes Mellitus Microalbum in (Yearly) 03/29/2024 Renal Monitoring 03/29/2024 04/17/2015, , 04/18/2013, Additional history exists Influenza Vaccination (#1) 2024 Tetanus Vaccination (Every 1 0 Years) 02/22/2031 02/22/2021 Lipid Screening Discontinued 02/06/2020, 05/2 10/2019, 11/29/2018, Additional history exists Procedures Procedure Name Priority Date/Time Associated Diagnosis Comments LIPID PROFILE Routine 02/06/2020 COMPREHENSIVE METABOLIC PANEL Routine 04/17/2015 HGB, A1C (GLYCOHEMOGLOBIN) Routine 01/25/2013 2:15 PM EDT from Last 3 Months or Most Recently Relevant to Health Maintenance Results * LIPID PROFILE (02/06/2020) Triglycerides 167 mg/dL [facility] EX TERNAL LAB Cholesterol 162 mg/dL [facility] EXTE RNAL LAB LDL Calculated 33 mg/dL TC E XTERNAL LAB HDL 73 [facility] CLINICAL DATA RESEARCH AL LAB Plasma Historical Provider CHEMISTRY ORDERABLES Final R esult [facility] EXTERNAL [facility] [address] * COMPREHENSIVE METABOLIC PANEL (04/17/2015) Glucose 107 CO2 27 mmol/L Creatinine 1.3 mg/dL Potassium 3.6 mmol/L Sodium 142 mmol/L Calcium 9.3 mg/dL BUN 22 Chloride 105 Plasma [facility] Provider CHEMISTRY ORDERABLES Final R esult * (ABNORMAL) HGB, A1C (GLYCOHEMOGLOBIN) (01/25/2013 2:15 PM EDT) Hgb A1C 6.0(H) 4.0 - 5.7 % [facility] EX[facility] Comment: Reference Ranges for Hgb [...] 2:15 PM EDT 01/25/2013 5:22 PM EDT us Kingston Porter MD CHEMISTRY ORDERABLES Final Result [facility] [address] from Last 3 Months or Most Recently Relevant to Health Maintenance Insurance MEDICARE MEDICARE Advance Directives For more information, please contact: [phone] Documents on File Type Date Recorded Patient Sighter Expl anation Advance Directives and Livin g [...] 5:13 AM 01/17/2013 4:28 PM Care Teams Presto Log Operator Relationship Specialty Start Date End Date Catarino Ireland MD 1210 [facility] [address] [place] [id number] PCP - General 01/19/13 Asif Marsh MD [address] [place] [address]. [address] [place] [address] Cardiology 10/22/20 Ronni Parikh MD 1954 [facility]. [address] [place], [place] [id number] Cardiology 11/12/21 Kingston Porter MD [facility] [address] [place] [address] Cardiology 04/05/22 Ira Caldera, RUTHY 7545 [facility] [address] Nurse Practitioner Nurse Practitioner 05/19/22
--- OUTSIDE RECORDS SUMMARY | 2024-11-20 14:48 | XMS_ITS | Encounter Summary ---
Author Organization [facility] Address [address] [place] [address] Care Team Providers Care Body Piercer Name Role Phone Catarino Ireland MD Primary Care Provider [phone] Asif Marsh MD Unavailable [phone] Ronni Parikh MD Unavailable [phone] Kingston Porter MD Unavailable [phone] Ira Caldera NP Unavailable [phone] Reason for Visit * Reason Onset Date Comments FYI 10/27/2024 Syncopal episode s and hospital admission Encounter Details Date Type Department Care Team (Late st Contact Info) Description 10/27/2024 Telephone [facility] Physicians - Heart & Vascular, [place] [address] [facility] [address] [place] [address] Ronni Parikh MD 1954 [facility] [place] [address] [place] [address] FY (Syncopal episodes and hospital admission ) [...] encounter Miscellaneous Notes * Telephone Encounter - Crys Eric RN - 11/08/2024 3:23 PM EDT Called and LM okay to proceed with MRI * Telephone Encounter - Ronni Parikh MD - 11/08/2024 3:20 PM EDT Yes, okay to proceed with the MRI * Telephone Encounter - Crys Eric RN - 11/08/2024 1:38 PM EDT Pt is having MRI done at an outside facility, needs to confirm there is no metal in his chest that is not MRI safe. PT had CABG in 2012 are there any contraindications to an MRI? * Telephone Encounter - Kingston Hussein - 11/08/2024 1:29 PM EDT Mara(spouse) is calling stated Naila is trying to get an MRI done at [facility]. Mara stated that they need to confirm Naila does not have metal in his chest? Mara stated that (PCP) thought there may be metal in Naila's chest. Mara stated she was asked to advise with Dr. Parikh on if there is metal in Naila's chest from apast procedure? Please call Mara back to advise [phone] * Telephone Encounter - Sam Bragg - 10/31/2024 1:29 PM EDT Spoke to Mara. Got pt scheduled with Ira on 11/28 in [place] since pt is wearing a heart monitor. [...] to go down. [facility] is [facility] in [place], [place]. Mara states that the pt had [...] time. Please advise and call Mara back @[phone] documented in this encounter Plan of Treatment Upcoming Encounters Date Type Department Care Team (Late st Contact Info) Description 11/28/2024 2:20 PM EDT Appointment [facility] Physicians - Heart & Vascular, [address] [place] [address] Ira Caldera, WHITE SHOE RAGGER 0[address] [facility] [place] [address] [place] [address] 02/09/2025 3:00 PM EST Appointment [facility] - Heart & Vascular, [address] [place] [address] Gui Ta Jr., MD 1954 [facility] [address] [place] [address] documented as of this encounter Visit Diagnoses Not on filedocumented in this encounter Care Teams Body Piercer Relationship Specialty Start Date End Date Catarino Ireland MD [address] [place] [address] PCP - General 01/19/13 Asif Marsh MD 2123 [facility]. [address] [place], [place] [id number] Cardiology 10/22/20 Ronni Parikh MD 1954 [facility]. [address] [place] [address] Cardiology 11/12/21 Kingston Porter MD [facility] [address] [place], [place] [address] Cardiology 04/05/22 Ira Caldera NP 7545 [facility] [place] [address] Nurse Practitioner Nurse Practitioner 05/19/22 documented as of this encounter
--- OUTSIDE RECORDS SUMMARY | 2024-11-20 14:48 | XMS_ITS | Encounter Summary ---
Author Organization [facility] Address [address] [place] [address] Care Team Providers Care Digital Forensics Examiner Name Role Phone Catarino Ireland MD Primary Care Provider [phone] Asif Marsh MD Unavailable [phone] Ronni Parikh MD Unavailable [phone] Kingston Porter MD Unavailable [phone] Ira Caldera NP Unavailable [phone] Reason for Visit * Reason Onset Date Comments Other 11/08/2024 Please fill out fax that was sent by [facility] about MRI Encounter Details Date Type Department Care Team (Late st Contact Info) Description 11/08/2024 Telephone [facility] Physicians - Heart & Vascular, [place] [address] [facility] [address] [place] [address] Ronni Parikh MD 1954 [place] [address] Other (Please fill out fax that was sent by [facility] about MRI) Social History Tobacco Use Types Packs/Day Years [...] Telephone Encounter - Crys Eric RN - 11/09/2024 8:31 AM EDT Sent fax information. We only have the Op note- we do not have any stent or graft cards * Telephone Encounter - Brandy Ramos - 11/08/2024 4:25 PM EDT Please fill out fax that was sent by [facility] in chart in the media file and fax back so that pt can have MRI done. documented in this encounter Plan of Treatment Upcoming Encounters Date Type Department Care Team (Late st Contact Info) Description 11/28/2024 2:20 PM EDT Appointment [facility] Physicians - Heart & Vascular, [facility] 1954 [facility] [address] [facility] [place] [address] Ira Caldera NP [address] [facility] [place] [address] 02/09/2025 3:00 PM EST Appointment [facility] Physicians - Heart & Vascular, [place] 1954 [facility] [address] [facility] [place] [address] Gui Ta Jr., MD 1954 [facility] [place] [address] [place] [address] documented as of this encounter Visit Diagnoses Not on filedocumented in this encounter Care Teams Digital Forensics Examiner Relationship Specialty Start Date End Date Catarino Ireland MD [address] [place] [address] PCP - General 01/19/13 Asif Marsh MD 3 [facility]. [address] [place] [address] Cardiology 10/22/20 Ronni Parikh MD [address] [place], [place] [address] Cardiology 11/12/21 Kingston Porter MD [address] [place] [address] [address] [place] [address] Cardiology 04/05/22 Ira Caldera NP [address] [place] [address] Nurse Practitioner Nurse Practitioner 05/19/22 documented as of this encounter
--- OUTSIDE RECORDS SUMMARY | 2024-11-20 14:48 | XMS_ITS | Encounter Summary ---
Author Organization [facility] Address [address] [place] [address] Care Team Providers Care Repairer Auto Clocks Name Role Phone Catarino Ireland MD Primary Care Provider [phone] Asif Marsh MD Unavailable [phone] Ronni Parikh MD Unavailable [phone] [place] Porter MD Unavailable [phone] Ira Caldera NP Unavailable [phone] Encounter Details Date Type Department Care Team (Late st Contact Info) Description 02/14/2013 Abstract [facility] Physicians - Heart & Vascular, [facility] [address] [place] [address] [address] [place] [address] Kingston Porter MD 2123 [facility] [address] [place] [address] Social History Tobacco Use Types [...] Description 11/28/2024 2:20 PM EDT Appointment [facility] Physicians - Heart & Vascular, [address] [place] [address] Ira Caldera, PERSONNEL MONITOR 75[address] [facility] [address] 02/09/2025 3:00 PM EST Appointment [facility] Physicians - Heart & Vascular, [place] 1954 [facility] [place] [address] [place] [address] Gui Ta Jr., MD 1954 [facility] [place] [place] [address] [place] [address] documented as of this encounter Procedures Procedure Name Priority Date/Time Associated Diagnosis Comments ABSTRACTED CV SURGERY ([facility]) Routine 02/01/2013 documented in this encounter Results * ABSTRACTED CV SURGERY ([facility]) (02/01/2013) CV Surg Test CABG x4 OBREGON to LAD SVG to Dx SVG -OM-PDA us Historical Provider CARDIAC SERVICES ORDERABLES Final Result documented in this encounter Visit Diagnoses Not on filedocumented in this encounter Care Teams Repairer Auto Clocks Relationship Specialty Start Date End Date Catarino Ireland MD [address] [facility] [address] [place] [address] PCP - General 01/19/13 Asif Marsh MD 2122 [facility] [address] [place] [address] Cardiology 10/22/20 Ronni Parikh MD 1954 [facility] [address] [place], [place] [address] Cardiology 11/12/21 Kingston Porter MD [facility] [place] [address] Cardiology 04/05/22 Ira Caldera NP [address] [place] [address] Nurse Practitioner Nurse Practitioner 05/19/22 documented as of this encounter
--- OUTSIDE RECORDS SUMMARY | 2024-11-20 14:48 | XMS_ITS | Encounter Summary ---
Author Organization [facility] Address [address] [place] [address] Care Team Providers Care Latcher Name Role Phone Catarino Ireland MD Primary Care Provider [phone] Asif Marsh MD Unavailable [phone] Ronni Parikh MD Unavailable [phone] Kingston Porter MD Unavailable [phone] Ira Caldera NP Unavailable [phone] Reason for Visit * Reason Comments Medications Refill Encounter Details Date Type Department Care Team (Late st Contact Info) Description 06/28/2023 Refill [facility] Physicians - Heart & Vascular, [address] [place] [address] Asif Marsh MD [address] [place] [address] [place] [address] Medications Refill Social History Tobacco Use [...] Description 11/28/2024 2:20 PM EDT Appointment [facility] Physicians - Heart & Vascular, Paulette Roche 1954 [facility] [address] [place] [address] Ira Caldera NP [address] [place] [address] 02/09/2025 3:00 PM EST Appointment [facility] Physicians - Heart & Vascular, Paulette Roche 1954 [facility] [address] [place] [address] Gui Ta Jr., MD 1954 [facility] [address] [place] [address] documented as of this encounter Visit Diagnoses Not on filedocumented in this encounter Care Teams Latcher Relationship Specialty Start Date End Date Catarino Ireland MD [address] [place] [address] PCP - General 01/19/13 Asif Marsh MD [address] [place] [address] [address] [place], [place] [address] Cardiology 10/22/20 Ronni Parikh MD 1954 [facility]. [address] [place] [address] Cardiology 11/12/21 Kingston Porter MD [facility]3 [facility] [address] [place] [address] Cardiology 04/05/22 Ira Caldera NP [address] [place], [place] [address] Nurse Practitioner Nurse Practitioner 05/19/22 documented as of this encounter
--- OUTSIDE RECORDS SUMMARY | 2024-11-20 14:48 | XMS_ITS | Clinical Summary ---
Author Organization [facility] Address [address] [place] [address] Phone Care Team Providers Care Geospatial Information Scientist Name Role Phone Unavailable Primary Care Provider [...]
--- OUTSIDE RECORDS SUMMARY | 2024-11-20 14:48 | XMS_ITS | Encounter Summary ---
Author Organization [facility] Address [address] [place] [address] Care Team Providers Care Disposition Clerk Name Role Phone Catarino Ireland MD Primary Care Provider [phone] Asif Marsh MD Unavailable [phone] Ronni Parikh MD Unavailable [phone] [place] Porter MD Unavailable [phone] Ira Caldera NP Unavailable [phone] Encounter Details Date Type Department Care Team (Late st Contact Info) Description 05/06/2016 Lab Results [facility] Physicians - Heart & Vascular, [facility] [address] [place] [address] [address] [place] [phone] Roxanne Salazar, AIDA 2123 [facility] [address] [place] [address] Social History Tobacco Use Types [...] Description 11/28/2024 2:20 PM EDT Appointment [facility] Physicians - Heart & Vascular, [place] Roche [address] [place] [address] [address] [place] [address] Ira Caldera NP [address] [facility] [place] [address] 02/09/2025 3:00 PM EST Appointment [facility] Physicians - Heart & Vascular, Paulette Roche [address] [facility] [place] [address] [place] [address] Gui Ta Jr., MD [address] [facility] [place] [address] documented as of this encounter Procedures Procedure Name Priority Date/Time Associated Diagnosis Comments LIPID PROFILE Routine 05/06/2016 documented in this encounter Results * LIPID PROFILE (05/06/2016) Cholesterol 141 mg/dL [facility] EXTE RNAL [facility] LDL Calculated 51 mg/dL [facility] E XTERNAL LAB HDL 57 [facility] COOLING PAN TENDER AL LAB Triglycerides 166 mg/dL [facility] EX TERNAL LAB AST 11 U/L [facility] COOL[facility] PAN TEND[facility] ALT 29 U/L [facility] COOLING PAN TENDER AL [facility] Plasma 05/06/2016 us Historical Provider CHEMISTRY ORDERABLES Final R esult [facility] EXTERNAL LAB [address] documented in this encounter Visit Diagnoses Not on filedocumented in this encounter Care Teams Disposition Clerk Relationship Specialty Start Date End Date Catarino Ireland MD [address] [place] [address] PCP - General 01/19/13 Asif Marsh MD 2123 [facility]. [address] [place] [address] Cardiology 10/22/20 Ronni Parikh MD 1954 [facility]. [address] [place], [place] [address] Cardiology 11/12/21 Kingston Porter MD [address] [place] [address] [address] [place] [address] Cardiology 04/05/22 Ira Caldera NP [address] [place], [place] [address] Nurse Practitioner Nurse Practitioner 05/19/22 documented as of this encounter
--- OUTSIDE RECORDS SUMMARY | 2024-11-20 14:48 | XMS_ITS | Encounter Summary ---
Author Organization [facility] Address [address] [place] [address] Care Team Providers Care Online Merchandising Coordinator Name Role Phone Catarino Ireland MD Primary Care Provider [phone] Asif Marsh MD Unavailable [phone] Ronni Parikh MD Unavailable [phone] Kingston Porter MD Unavailable [phone] Ira Caldera NP Unavailable [phone] Encounter Details Date Type Department Care Team (Late st Contact Info) Description 11/11/2021 Abstract [facility] Physicians - Heart & Vascular, [facility] 1955 [facility] [address] [place] [address] Malika Heaton, RN [address] [place] [address] Social History Tobacco Use Types [...] 11/28/2024 2:20 PM EDT Appointment [facility] Physicians - Heart & Vascular, Paulette Roche 1954 [facility] [address] [place] [address] Ira Caldera, HOUSING OFFICER [address] [place] [address] 02/09/2025 3:00 PM EST Appointment [facility] Physicians - Heart & Vascular, Paulette Roche 1954 [facility] [address] [place] [address] Gui Ta Jr., MD 1954 [facility] [address] [place] [address] documented as of this encounter Procedures Procedure Name Priority Date/Time Associated Diagnosis Comments ABSTRACTED VASCULAR TEST ([facility]) Routine 10/30/2016 EJECTION FRACTION % FROM TEST Routine 01/17/2013 EJECTION FRACTION % FROM TEST Routine 01/17/2013 ABSTRACTED ECHO ([facility]) Routine 01/17/2013 documented in this encounter Results * ABSTRACTED VASCULAR TEST ([facility]) (10/30/2016) Vascular Test Carotid - BICA less than 50% [facility] EXTER[facility] us Historical Provider CARDIAC SERVICES ORDERABLES Final Result Performing Organization Address [facility]/ZIP Co de Phone Number [facility] [address] * EJECTION FRACTION % - MECHANISM (01/17/2013) EF Mechanism Echo TC EXT E[facility]L LAB us Historical Provider DUMMY Final Result Performing Organization Address [facility] Co de Phone Number [facility] [address] * EJECTION FRACTION % FROM TEST (01/17/2013) EF 63.00 % [facility] us Historical Provider DUMMY Final Result Performing Organization Address City/[facility]/ZIP Co de Phone Number [facility] [address] * ABSTRACTED ECHO ([facility]) (01/17/2013) Echo DD1 [facility] us Historical Provider CARDIAC SERVICES ORDERABLES Final Result Performing Organization Address City/[facility]/ZIP Co de Phone Number [facility] [address] documented in this encounter Visit Diagnoses Not on filedocumented in this encounter Care Teams Online Merchandising Coordinator Relationship Specialty Start Date End Date Catarino Ireland MD [address] [place], [place] [address] PCP - General 01/19/13 Asif Marsh MD [address] [place] [address]. [address] [place] [address] Cardiology 10/22/20 Ronni Parikh MD 1954 [facility] [place] [address] Cardiology 11/12/21 Kingston Porter MD Formerly named [facility]3 [facility] [address] [place] [address] Cardiology 04/05/22 Ira Caldera NP 7545 [facility] [place] [address] Nurse Practitioner Nurse Practitioner 05/19/22 documented as of this encounter
--- OUTSIDE RECORDS SUMMARY | 2024-11-20 14:48 | XMS_ITS | Encounter Summary ---
Author Organization [facility] Address [address] [place] [address] Care Team Providers Care Freight Elevator Operator Name Role Phone Catarino Ireland MD Primary Care Provider [phone] Asif Marsh MD Unavailable Ronni Parikh MD Unavailable [phone] [place] Porter MD Unavailable [phone] Ira Caldera NP Unavailable [phone] Encounter Details Date Type Department Care Team (Late st Contact Info) Description 01/23/2013 Abstract [facility] - [facility], [facility] [address] [place] [address] [address] [place] [id number] [place] Porter MD [address] [place] [address] Social History Tobacco Use Types [...] Description 11/28/2024 2:20 PM EDT Appointment [facility], [address] [place] [address] Ira Caldera NP [address] [place] [address] [place] [address] 02/09/2025 3:00 PM EST Appointment [facility], [place] [address] [facility] [address] [place] [address] Gui Ta Jr., MD [address] [facility] [address] [place] [id number] documented as of this encounter Visit Diagnoses Not on filedocumented in this encounter Care Teams Freight Elevator Operator Relationship Specialty Start Date End Date Catarino Ireland MD [address] [place] [id number] PCP - General 01/19/13 Asif Marsh MD [address] [facility] [place] [address] Cardiology 10/22/20 Ronni Parikh MD [address] [facility] [place] [id number] Cardiology 11/12/21 [place] Porter MD [address] [place] [address] Cardiology 04/05/22 Ira Caldera NP [address] [place] [address] [place] [address] Nurse Practitioner Nurse Practitioner 05/19/22 documented as of this encounter
--- NOTE | 2024-11-20 15:00 | MR_ITS ---
FINAL REPORT TECHNIQUE: Multiplanar and multisequence imaging of the brain was obtained without contrast. CLINICAL HISTORY: syncope, EPISODES OF PASSING OUT FINDINGS: Brain parenchymal: There is no mass effect or midline shift. There is decreased attenuation throughout the deep white matter consistent with chronic small vessel ischemic change. There are no other areas of abnormal signal intensity.The cerebellum and brainstem are without acute abnormality. Ventricles: The ventricles are symmetric in size and configuration without hydrocephalus. Extra-axial spaces: No extra-axial fluid collections. Diffusion imaging: No areas of restricted diffusion to suggest acute infarct. Flow voids: Flow voids within the major intracranial vessels are preserved. Soft tissues: Soft tissues are without acute abnormality. IMPRESSION: No acute intracranial abnormality. Reviewed, Interpreted and Dictated by Pat Gilbert MD Transcribed by Elzbieta Chao Authenticated and . [facility]
== END 2024-11-20 23:59 | disposition home or self-care (01) ==
LOC: RAD 14:46
PROVIDERS: PCP Internal Medicine; Visit Provider Internal Medicine
DX: R55 Syncope and collapse (principal)
CPT/HCPCS: 70551

== ENCOUNTER 2025-03-09 09:33 | Outpatient (CLI) | payer MEDICARE, SELFPAY ==
[2025-03-09 10:27] LABS: Alanine Aminotransferase 20 U/L (12-78); Albumin Level 4.7 g/dl (3.5-5.0); Albumin/Globulin Ratio 1.7 (1.1-1.8); Alkaline Phosphatase 118 U/L (38-126); Anion Gap 17.1 mEq/L (5-15); Aspartate Amino Transferase 24 U/L (17-59); Bilirubin,Total 1.2 mg/dl (0.2-1.3); Blood Urea Nitrogen 22 mg/dl (9-20); Calcium 9.6 mg/dl (8.4-10.2); Carbon Dioxide 24 mmol/L (22.0-30.0); Chloride 105 mmol/L (98-107); Cholesterol 124 mg/dl (140-200); Creatinine,Serum 1.50 mg/dl (0.66-1.25); Estimated Glomerular Filt Rate 45 ml/min (>60); GFR (African American) 54 ML/MIN (>60); Globulin 2.8 g/dL (1.3-3.2); Glucose 107 mg/dl (74-100); HDL Cholesterol 50 mg/dl (40-60); Potassium 4.1 mmoL/L (3.5-5.1); Sodium 142 mmol/L (136-145); Total Protein,Serum 7.5 g/dl (6.3-8.2); Triglycerides 120 mg/dl (30-150)
== END 2025-03-09 23:59 | disposition home or self-care (01) ==
LOC: LAB 09:34
PROVIDERS: PCP Internal Medicine; Visit Provider Internal Medicine
DX: E78.5 Hyperlipidemia, unspecified (principal); I12.9 Hypertensive chronic kidney disease with stage 1 through stage 4 chronic kidney disease, or unspecified chronic kidney disease; N18.9 Chronic kidney disease, unspecified; I25.10 Atherosclerotic heart disease of native coronary artery without angina pectoris; Z12.5 Encounter for screening for malignant neoplasm of prostate
CPT/HCPCS: 36415; 80053; 80061; G0103